=== PATIENT | female | born 1980 | race Caucasian/White ===

== ENCOUNTER 2019-12-30 12:37 | Outpatient (REF) | payer OTHER, SELFPAY ==
[2019-12-30 13:27] LABS: MANUAL DIFF FLAG NO
[2019-12-30 13:29] LABS: Basophils Absolute Auto 0.1 X10*3/uL (0.0-0.2); Basophils Percent Auto 0.7 % (0-2); Eosinophils Absolute Auto 0.1 X10*3/uL (0.0-0.4); Eosinophils Percent Auto 1.6 % (0-4); Hematocrit 43.2 % (37-47); Hemoglobin 13.5 g/dl (12.0-16.0); Imm Gran Abs Auto 0.02 X10*3/uL (0.00-0.03); Imm Gran Pct Auto 0.3 % (0.0-0.4); Lymphocytes Absolute Auto 2.3 X10*3/uL (1.2-4.9); Lymphocytes Percent Auto 30.1 % (20-40); Mean Corpuscular HGB Conc 31.3 g/dl (31.0-35.0); Mean Corpuscular Volume 83.1 fL (80-98); Monocytes Absolute Auto 0.3 X10*3/uL (0.1-1.2); Monocytes Percent Auto 4.4 % (2-11); Neutrophils Absolute Auto 4.7 X10*3/uL (2.0-8.3); Neutrophils Percent Auto 62.9 % (45-73); Platelet Count 304 X10*3/uL (160-400); Red Cell Distribution Width 14.2 % (11.0-16.0); White Blood Count 7.5 X10*3/uL (4.8-10.8)
[2019-12-30 13:58] LABS: Alanine Aminotransferase 15 U/L (0-31); Albumin Level 4.1 g/dL (3.5-5.0); Alkaline Phosphatase 88 U/L (39-117); Anion Gap 12 (12-20); Aspartate Amino Transferase 17 U/L (5-31); Bilirubin Total 0.3 mg/dL (0.0-1.0); Blood Urea Nitrogen 12 mg/dL (9-16); Calcium 8.5 mg/dL (8.4-10.2); Carbon Dioxide 27 mmol/L (22-29); Chloride 105 mmol/L (96-108); Cholesterol 157 mg/dL; Estimated Glomerular Filt Rate > 60; Glucose Fasting 84 mg/dL (60-99); HDL Cholesterol 55 mg/dL; LDL Cholesterol Calculated 85 mg/dl; Potassium 4.5 mmol/l (3.3-5.1); Sodium 139 mmol/L (135-145); Total Protein 6.8 g/dL (6.5-8.0); Triglycerides 85 mg/dL
[2019-12-30 14:12] LABS: Glucose Urine UA NEG (NEG); Leukocyte Esterase Urine NEG (NEG); Nitrite Urine NEG (NEG); PH 6.5 (5.0-8.0); Specific Gravity - Urine 1.015 (1.005-1.025); Urine Blood NEG (NEG); Urine Ketones NEG (NEG); Urine Protein NEG (NEG-TRACE)
[2019-12-30 14:16] LABS: Appearance Urine HAZY; Color Urine YELLOW; UACC Culture Trigger NO
== END 2019-12-30 12:38 | disposition home or self-care (01) ==
LOC: HO.LAB 12:37
PROVIDERS: Visit Provider Internal Medicine
DX: G43.909 Migraine, unspecified, not intractable, without status migrainosus (principal); Z00.00 Encounter for general adult medical examination without abnormal findings; E66.3 Overweight; M54.5 Low back pain
CPT/HCPCS: 36415; 80053; 80061; 81003; 84443; 85025

== ENCOUNTER 2020-09-02 16:17 | Outpatient (REF) | payer OTHER, SELFPAY ==
[2020-09-02 16:50] LABS: Hematocrit 41.9 % (37-47); Hemoglobin 13.4 g/dl (12.0-16.0); Mean Corpuscular Hemoglobin 26.2 pg (27.0-33.0); Mean Corpuscular Volume 81.8 fL (80-98); Mean Platelet Volume 10.6 fL (9.4-12.3); Platelet Count 273 X10*3/uL (160-400); Red Blood Count 5.12 X10*6/uL (4.20-5.50); Red Cell Distribution Width 14.5 % (11.0-16.0); White Blood Count 7.6 X10*3/uL (4.8-10.8)
[2020-09-02 17:18] LABS: Anion Gap 14 (12-20); Blood Urea Nitrogen 10 mg/dL (9-16); Calcium 9.3 mg/dL (8.4-10.2); Carbon Dioxide 24 mmol/L (22-29); Chloride 106 mmol/L (96-108); Estimated Glomerular Filt Rate > 60; Glucose Random 86 mg/dL (60-115); Lipase 15 U/L (8-78); Potassium 4.2 mmol/L (3.3-5.1); Sodium 140 mmol/L (135-145)
[2020-09-03 11:54] LABS: HBc Num1 0.07 S/CO (0.00-0.79); HBsAGNum1 0.16 S/CO (0.00-0.99); Hepatitis B Core Antibody Nonreactive (Nonreactive); Hepatitis B Surface Antigen Negative (Negative); ~HepC Num1 0.05 S/CO (0.00-0.79); ~Hepatitis C Antibody Nonreactive (Nonreactive)
[2020-09-04 08:19] LABS: Hepatitis A Antibody IgM 0.21 Index (0-0.79); ~Hepatitis A Antibody IgM Nonreactive (Nonreactive)
[2020-09-04 11:11] LABS: HBS Num1 1.04 mIU/mL (0-7.99); ~Hepatitis B Surface Antibody NONREACTIVE (Nonreactive)
== END 2020-09-02 16:18 | disposition home or self-care (01) ==
LOC: HO.LAB 16:17
PROVIDERS: PCP Physician Assistant; Visit Provider Physician Assistant
DX: Z01.84 Encounter for antibody response examination (principal); Z11.59 Encounter for screening for other viral diseases; I10 Essential (primary) hypertension; K52.9 Noninfective gastroenteritis and colitis, unspecified
CPT/HCPCS: 36415; 80048; 83690; 85027; 86704; 86706; 86709; 86803; 87340

== ENCOUNTER 2020-10-28 08:08 | Outpatient (REF) | payer OTHER, SELFPAY ==
--- NOTE | ~2020-10-28 | MM_ITS ---
EXAMINATION: MM SCREENING DIGITAL BREAST TOMOSYNTHESIS, BILATERAL CLINICAL INFORMATION: Screening. Asymptomatic. The lifetime risk of breast cancer based on the Tyrer-Cuzick Model is 14%. COMPARISON: Mammography: 10/25/2019, 05/11/2018, 04/28/2017 TECHNIQUE: Digital breast tomosynthesis is performed in both the craniocaudal and mediolateral oblique views along with computer-aided detection (CAD). Synthesized 2D images are generated from the tomosynthesis. FINDINGS: The breasts are heterogeneously dense, which may obscure small masses (ACR BI-RADS breast composition Category c). There are no significant masses, abnormal calcifications, or other abnormalities. Parenchymal pattern is similar to prior studies. No developing density. The skin contours are unremarkable. MM/MM tomosynthesis screening BI IMPRESSION: No mammographic evidence of malignancy. ASSESSMENT: BI-RADS 1: Negative RECOMMENDATION: Routine annual mammography screening. This patient's information was entered into a reminder system with a target due date for their next mammogram.
== END 2020-10-28 08:09 | disposition home or self-care (01) ==
LOC: HO.MAMMO 08:08
PROVIDERS: PCP Internal Medicine; Visit Provider Internal Medicine
DX: Z12.31 Encounter for screening mammogram for malignant neoplasm of breast (principal)
CPT/HCPCS: 77063; 77067

== ENCOUNTER 2022-07-06 14:09 | Outpatient (REF) | payer OTHER, SELFPAY ==
--- NOTE | ~2022-07-06 | MM_ITS ---
EXAMINATION: MM SCREENING DIGITAL BREAST TOMOSYNTHESIS, BILATERAL CLINICAL INFORMATION: Screening. Asymptomatic. The lifetime risk of breast cancer based on the Tyrer-Cuzick Model is 14%. COMPARISON: Mammography: 10/28/2020, 10/25/2019, 05/11/2018 TECHNIQUE: Digital breast tomosynthesis is performed in both the craniocaudal and mediolateral oblique views along with computer-aided detection (CAD). Synthesized 2D images are generated from the tomosynthesis. FINDINGS: The breasts are heterogeneously dense, which may obscure small masses (ACR BI-RADS breast composition Category c). Parenchymal pattern is similar to prior studies and there is no developing density or architectural abnormality. There are no significant masses, abnormal calcifications, or other abnormalities. The axilla are unremarkable. Skin contours are smooth. No significant changes. MM/MM tomosynthesis screening BI IMPRESSION: No mammographic evidence of malignancy. ASSESSMENT: BI-RADS 1: Negative RECOMMENDATION: Routine annual mammography screening. This patient's information was entered into a reminder system with a target due date for their next mammogram.
== END 2022-07-06 14:10 | disposition home or self-care (01) ==
LOC: HO.MAMMO 14:09
PROVIDERS: PCP Internal Medicine; Visit Provider Internal Medicine
DX: Z12.31 Encounter for screening mammogram for malignant neoplasm of breast (principal)
CPT/HCPCS: 77063; 77067

== ENCOUNTER 2022-10-05 13:28 | Outpatient (AMB) | payer OTHER, SELFPAY ==
--- NOTE | 2022-10-05 13:31 | A.OFFPC_ITS ---
Vital Signs 10/05/22 13:32 Height 5 ft 4 in Weight 181 lb BMI 31.1 BP 116/62 Blood Pressure Location Lt brachial Position Sitting Pulse 77 Pulse Source Pulse Oximeter Pulse Oximetry (%) 98 Oxygen Delivery Method Room Air Intake Visit Reasons: Annual PE Gear Technician Required: No Accompanied by: Self / Same As Patient Allergies No Known Allergies Allergy (Verified 10/05/22 13:43) Medication List - Last Reconciled 10/05/22 by Gerard Abernathy MD No Known Home Meds Tobacco use date assessed: 10/05/22 Dental Screening Dental Screen Date: 10/05/22 Did you have a dental visit in the last 12 months?: No Did you have a dental problem in the last 6 months where you did not have access to dental care?: No Was dental information given to patient?: No HPI Annual PE HPI Details Patient comes in today for her annual physical examination - was last seen by me via telehealth visit in 12/2019 She last had a baby (3rd child) in February 2022 - had to undergo due to bradycardia on the baby's part but states that her child is healthy and has had no problems so far States that she currently feels okay She denies any headaches or dizziness - states that her migraine headaches have been well-controlled so far Denies any chest pains, no SOB No nausea/vomiting, no abdominal pain No change in bowel habits noted Denies any acute urinary symptoms Relates (+) on and off low back pain - reports that she was told years ago that she has some scoliosis and would like to have this checked out further Also relates that both of her hips have been hurting frequently lately, and that both of her legs feel numb at times Does not recall any recent injury or trauma to her back or hips Had her annual mammogram last done in June 2022 - mammogram was normal Has not had quarantine inspector exam and pap smear done since her earlier this year and states that she will reach out to [facility] OB-Chief Librarian Circulation Department about this [facility] Medical History (Updated 10/05/22 @ 14:10 by Gerard Abernathy MD) Depression History of dissection of internal carotid artery (~2007) Migraine Obesity (BMI 30-39.9) Surgical History History of section (~02/2022) Family History Father No problems noted. Mother Mental health disorder Social History Housing: House Alcohol intake: never Patient Tobacco Use Status: Never used Tobacco e-Cigarette/Vaping Use: Never Used service: No Current occupational status: employed Cognitive needs: No Hearing needs: No Vision needs: No Questionnaire PHQ-9 Over the last 2 weeks, how often have you been bothered by any of the following problems? 1. Little interest or pleasure in doing things: not at all 2. Feeling down, depressed, or hopeless: not at all 3. Trouble falling or staying asleep, or sleeping too much: not at all 4. Feeling tired or having little energy: not at all 5. Poor appetite or overeating: not at all 6. Feeling bad about yourself - or that you are a failure or have let yourself or your family down: not at all 7. Trouble concentrating on things, such as reading the newspaper or watching television: not at all 8. Moving or speaking so slowly that other people could have noticed. Or the opposite - being so fidgety or restless that you have been moving around a lot more than usual: not at all 9. Thoughts that you would be better off or of hurting yourself in some way: not at all Total score: 0 Depression Screening Interpretation: Negative 19029 - PHQ-9 Billing: Yes Source: Developed by Drs. Mihir Menendez, Nicolasa East, Rickie Sullivan and colleagues, with an educational sunita from [employer]. Thrive Questionnaire Date Thrive assessed: 10/05/22 I am a: Patient What is your living situation today?: I have a steady place to live Within the past 12 months, did the food you bought not last and you didn't have the money to get more?: Never true Within the past 12 months, did you worry whether your food would run out before you got money to buy more?: Never true Do you have trouble paying for medicines?: No Do you have trouble getting transportation to medical appointments?: No Do you have trouble paying your heating and electricity bill?: No Do you have trouble taking care of your child, family member or friend?: No Do you have trouble with day-to-day activities such as bathing, preparing meals, shopping, managing finances, etc.?: No Are you currently unemployed and looking for a job?: No Are you interested in more education?: No Please select the resources that you would like help with: None Currently or been in a relationship where the following occur: no concerns reported AUDIT C Alcohol Use Questionnaire (AUDIT-C) 1. How often do you have a drink containing alcohol?: Never 2. How many drinks containing alcohol do you have on a typical day when you are drinking?: 1 or 2 (none) 3. How often do you have six or more drinks on one occasion?: Never Total Score: 0 Score Reviewed/Action Taken: Yes CRISELDA-7 AMB Questionnaire CRISELDA-7 Date CRISELDA - 7 assessed: 10/05/22 Feeling nervous, anxious, or on edge: 0 = Not at all Not being able to stop or control worryin = Not at all Worrying too much about different things: 0 = Not at all Trouble relaxin = Not at all Being so restless that it is hard to sit still: 0 = Not at all Becoming easily annoyed or irritable: 0 = Not at all Feeling afraid as if something awful might happen: 0 = Not at all Total CRISELDA-7 score (0-4 normal; 5-9 mild; 10-14 moderate; 15-21 severe): 0 Source: Developed by Drs. Mihir Menendez, Nicolasa East, Rickie Sullivan and colleagues, with an educational sunita from [employer]. Review of Systems Const Denies chills, Denies fatigue, Denies fever(s), Denies headache(s) and Denies malaise Eyes Denies blurry vision, Denies irritation and Denies itchy eyes ENT Denies dysphagia, Denies dizziness, Denies otalgia, Denies headache(s), Denies neck pain, Denies odynophagia and Denies sore throat Card Denies chest pain, Denies rapid heart rate, Denies irregular heart rhythm, Denies palpitations and Denies dyspnea Resp Denies chest congestion, Denies cough, Denies dyspnea and Denies wheezing GI Denies abdominal pain, Denies constipation, Denies dysphagia, Denies heartburn, Denies diarrhea, Denies nausea, Denies odynophagia and Denies vomiting Denies hematuria, Denies urinary frequency, Denies dysuria, Denies urinary incontinence and Denies urinary urgency Musc Reports back pain (on and off), Reports arthralgias (lately, in both hips), Denies joint swelling, Denies muscle weakness and Denies neck pain Skin/Breast Denies breast pain, Denies breast mass, Denies change in pigmentation, Denies lesions, Denies photosensitivity, Denies rash and Denies unusual bruising Neuro Denies dizziness, Denies headache(s) and Denies paresthesias Psych Denies anxiety and Denies depression Endo Denies fatigue and Denies palpitations Jorge/Lymph Denies easy bruising Aller/Immun Denies itchy eyes and Denies wheezing Physical exam (Primary Care) Vital Signs: Last Vital Signs Pulse 77 10/05/22 13:32 BP 116/62 10/05/22 13:32 Pulse Ox 98 10/05/22 13:32 Oxygen Delivery Method Room Air 10/05/22 13:32 BMI result Body Mass Index 31.1 Tobacco/Smoking Status: Tobacco use Status Tobacco use date assessed 10/05/22 10/05/22 13:40 Patient Tobacco Use Status Never used Tobacco 10/05/22 13:40 e-Cigarette/Vaping Use Never Used 10/05/22 13:40 PHQ-9: PHQ-9 Score PHQ-9: Total score 0 10/05/22 13:40 Depression Screening Interpretation: Negative Thrive Assessment: Date of Thrive Assessment Date Thrive assessed 10/05/22 10/05/22 13:40 Currently or been in a relationship where the following occur: no concerns reported Const General: no acute distress, alert and awake Orientation/consciousness: patient oriented x3 HENMT Head: Yes normocephalic and Yes atraumatic Ears: external ears normal, TM's normal bilaterally and EAC's normal General nose exam: No nasal discharge present Face and sinus: Yes normal facial exam and Yes sinuses nontender Teeth and gingiva: dentition normal Throat: Yes posterior oropharynx normal and Yes tonsils normal (no TP congestion) Eyes Eyelids: Yes eyelids normal Conjunctivae: conjunctivae normal Pupils: Equal, round and reactive pupils present EOM: EOMs intact bilaterally Neck Neck: Yes no lymphadenopathy and Yes supple Thyroid: Thyroid normal Resp Auscultation: clear to auscultation bilaterally, no rales and no wheezes Cardio Rate: regular rate Rhythm: regular rhythm Heart sounds: no murmurs GI Palpation (GI): Soft to palpation and nontender Auscultation: normal bowel sounds General: Yes no CVA tenderness Back/Spine/Pelvis Back: no CVA tenderness Thoracic/Lumbar Spine: thoracic spinal tenderness (mild, over the lower thoracic spine) and lumbar spinal tenderness (mild) Skin Lesions: no lesions Rashes: no rashes Neuro General: patient oriented x3, moves all extremities, no focal motor deficits and CN's II-XI intact bilaterally Cranial nerves: Yes Equal, round and reactive pupils present Cognition (Neuro): normal cognition Gait exam (Neuro): Normal gait present Extrem General: Yes no clubbing, cyanosis or edema Assessment and Plan Assessment & Plan (1) Annual physical exam: Code(s): Z00.00 - Encounter for general adult medical examination without abnormal findings Plan: Check labs Had a normal screening mammogram done in June 2022 States that she will be reaching out to her OB-Chief Librarian Circulation Department at [facility] to schedule her next annual pap smear and quarantine inspector exam [place] (2) Migraine: Code(s): G43.909 - Migraine, unspecified, not intractable, without status migrainosus Qualifiers: Migraine type: unspecified Status migrainosus presence: without status migrainosus Intractability: not intractable Qualified Code(s): G43.909 - Migraine, unspecified, not intractable, without status migrainosus Plan: Stable - patient states that she hardly has to take anything for headaches lately Reinforced avoidance of potential migraine triggers and advised to make sure she is getting enough rest and sleep at night regularly (3) Back pain: Code(s): M54.9 - Dorsalgia, unspecified Qualifiers: Back pain location: back pain in unspecified location Chronicity: unspecified Back pain laterality: midline Qualified Code(s): M54.89 - Other dorsalgia Plan: Relates (+) Hx of scoliosis although she had lumbar spine x-rays done back in 2013 that came out normal Will send her for x-rays of the thoracic and lumbar spine for further evaluation (4) Bilateral hip pain: Code(s): M25.551 - Pain in right hip; M25.552 - Pain in left hip Plan: Will also send her for x-rays of both hips for further evaluation (5) Obesity (BMI 30-39.9): Code(s): E66.9 - Obesity, unspecified Plan: Reinforced diet/exercise as tolerated/lose weight Plan To return in 1 year for her next annual physical examination Orders: Orders XR thoracic spine 3V Today M54.9 - Dorsalgia, unspecified, Z87.39 - Personal history of other diseases of the musculoskeletal system and connective tissue XR lumbar spine 2-3V Today M54.9 - Dorsalgia, unspecified, Z87.39 - Personal history of other diseases of the musculoskeletal system and connective tissue XR hip LT min 2V Today M25.551 - Pain in right hip, M25.552 - Pain in left hip XR hip RT min 2V Today M25.551 - Pain in right hip, M25.552 - Pain in left hip Comprehensive [place]. Panel Fast Today E78.00 - Pure hypercholesterolemia, unspecified, Z00.00 - Encounter for general adult medical examination without abnormal findings Lipid Panel Today E78.00 - Pure hypercholesterolemia, unspecified, Z00.00 - Encounter for general adult medical examination without abnormal findings TSH reflex Free T4 Today E78.00 - Pure hypercholesterolemia, unspecified, Z00.00 - Encounter for general adult medical examination without abnormal findings Vitamin D 25-OH Total Today E55.9 - Vitamin D deficiency, unspecified, Z00.00 - Encounter for general adult medical examination without abnormal findings Complete Blood Count Auto Diff Today G43.909 - Migraine, unspecified, not intractable, without status migrainosus, Z00.00 - Encounter for general adult medical examination without abnormal findings UA CC w/rflx Micro + Cult Today R30.0 - Dysuria, Z00.00 - Encounter for general adult medical examination without abnormal findings Coding Level of Care Code Est Pt Prev Care 40-64y(83198) Diagnoses Annual physical exam Z00.00 Migraine G43.909 Migraine type: unspecified Status migrainosus presence: without status migrainosus Intractability: not intractable Back pain M54.89 Back pain location: back pain in unspecified location Chronicity: unspecified Back pain laterality: midline Bilateral hip pain M25.551; M25.552 Obesity (BMI 30-39.9) E66.9
[2022-10-05 13:32] VITALS: BP 116/62; PULSE 77; O2SAT 98; BMI 31.1
== END 2022-10-05 13:59 | disposition home or self-care (01) ==
PROVIDERS: PCP Internal Medicine; Visit Provider Internal Medicine
DX: Z00.00 Encounter for general adult medical examination without abnormal findings (principal); G43.909 Migraine, unspecified, not intractable, without status migrainosus; E66.9 Obesity, unspecified; Z68.31 Body mass index [BMI] 31.0-31.9, adult; M54.89 Other dorsalgia; M25.551 Pain in right hip; M25.552 Pain in left hip
CPT/HCPCS: 99396

== ENCOUNTER 2022-10-08 09:23 | Outpatient (REF) | payer OTHER, SELFPAY ==
--- NOTE | ~2022-10-08 | XR_ITS ---
EXAMINATION: XR THORACIC SPINE XR LUMBAR SPINE XR HIP, RIGHT XR HIP, LEFT CLINICAL INFORMATION: Back pain, upper and lower. Bilateral hip pain. COMPARISON: None available. TECHNIQUE: 3 views of the thoracic spine, 3 views of the lumbar spine. AP and lateral views of bilateral hips. FINDINGS: THORACIC SPINE: Mild rightward curvature of the thoracic spine. Mild multilevel degenerative changes with hypertrophic change in the thoracic spine. Thoracic vertebral body heights are preserved. LUMBAR SPINE: Mild leftward curvature of the lumbar spine. Mild multilevel lumbar spondylosis. Lumbar disc space heights are preserved. Facet arthritis in the lower lumbar spine. LEFT HIP: Left hip joint space is preserved. Small lateral acetabular hypertrophic change. RIGHT HIP: Ksla-zd-gmlzvxzy degenerative changes with joint space narrowing right hip. Small right lateral acetabular cystic lucency. XR/XR lumbar spine 2-3V IMPRESSION: 1. Mild degenerative changes in the thoracic spine. 2. Facet arthritis in the lower lumbar spine. 3. Nkli-kj-zskmpatn degenerative changes right hip. 4. Minimal degenerative changes left hip. Additional imaging with CT scan or MRI should be considered for better visualization as these modalities are much more sensitive for detection of fracture or other underlying pathology.
--- NOTE | ~2022-10-08 | XR_ITS ---
EXAMINATION: XR THORACIC SPINE XR LUMBAR SPINE XR HIP, RIGHT XR HIP, LEFT CLINICAL INFORMATION: Back pain, upper and lower. Bilateral hip pain. COMPARISON: None available. TECHNIQUE: 3 views of the thoracic spine, 3 views of the lumbar spine. AP and lateral views of bilateral hips. FINDINGS: THORACIC SPINE: Mild rightward curvature of the thoracic spine. Mild multilevel degenerative changes with hypertrophic change in the thoracic spine. Thoracic vertebral body heights are preserved. LUMBAR SPINE: Mild leftward curvature of the lumbar spine. Mild multilevel lumbar spondylosis. Lumbar disc space heights are preserved. Facet arthritis in the lower lumbar spine. LEFT HIP: Left hip joint space is preserved. Small lateral acetabular hypertrophic change. RIGHT HIP: Fjue-tp-kqcdtwej degenerative changes with joint space narrowing right hip. Small right lateral acetabular cystic lucency. XR/XR hip RT min 2V IMPRESSION: 1. Mild degenerative changes in the thoracic spine. 2. Facet arthritis in the lower lumbar spine. 3. Rwjy-bp-zszzwiir degenerative changes right hip. 4. Minimal degenerative changes left hip. Additional imaging with CT scan or MRI should be considered for better visualization as these modalities are much more sensitive for detection of fracture or other underlying pathology.
--- NOTE | ~2022-10-08 | XR_ITS ---
EXAMINATION: XR THORACIC SPINE XR LUMBAR SPINE XR HIP, RIGHT XR HIP, LEFT CLINICAL INFORMATION: Back pain, upper and lower. Bilateral hip pain. COMPARISON: None available. TECHNIQUE: 3 views of the thoracic spine, 3 views of the lumbar spine. AP and lateral views of bilateral hips. FINDINGS: THORACIC SPINE: Mild rightward curvature of the thoracic spine. Mild multilevel degenerative changes with hypertrophic change in the thoracic spine. Thoracic vertebral body heights are preserved. LUMBAR SPINE: Mild leftward curvature of the lumbar spine. Mild multilevel lumbar spondylosis. Lumbar disc space heights are preserved. Facet arthritis in the lower lumbar spine. LEFT HIP: Left hip joint space is preserved. Small lateral acetabular hypertrophic change. RIGHT HIP: Dvfj-rq-ylhezjtb degenerative changes with joint space narrowing right hip. Small right lateral acetabular cystic lucency. XR/XR thoracic spine 3V IMPRESSION: 1. Mild degenerative changes in the thoracic spine. 2. Facet arthritis in the lower lumbar spine. 3. Xyso-fe-fzxzyjoe degenerative changes right hip. 4. Minimal degenerative changes left hip. Additional imaging with CT scan or MRI should be considered for better visualization as these modalities are much more sensitive for detection of fracture or other underlying pathology.
--- NOTE | ~2022-10-08 | XR_ITS ---
EXAMINATION: XR THORACIC SPINE XR LUMBAR SPINE XR HIP, RIGHT XR HIP, LEFT CLINICAL INFORMATION: Back pain, upper and lower. Bilateral hip pain. COMPARISON: None available. TECHNIQUE: 3 views of the thoracic spine, 3 views of the lumbar spine. AP and lateral views of bilateral hips. FINDINGS: THORACIC SPINE: Mild rightward curvature of the thoracic spine. Mild multilevel degenerative changes with hypertrophic change in the thoracic spine. Thoracic vertebral body heights are preserved. LUMBAR SPINE: Mild leftward curvature of the lumbar spine. Mild multilevel lumbar spondylosis. Lumbar disc space heights are preserved. Facet arthritis in the lower lumbar spine. LEFT HIP: Left hip joint space is preserved. Small lateral acetabular hypertrophic change. RIGHT HIP: Zpnx-tf-womzxkjq degenerative changes with joint space narrowing right hip. Small right lateral acetabular cystic lucency. XR/XR hip LT min 2V IMPRESSION: 1. Mild degenerative changes in the thoracic spine. 2. Facet arthritis in the lower lumbar spine. 3. Fdho-jo-xhhqnply degenerative changes right hip. 4. Minimal degenerative changes left hip. Additional imaging with CT scan or MRI should be considered for better visualization as these modalities are much more sensitive for detection of fracture or other underlying pathology.
[2022-10-08 09:33] LABS: MANUAL DIFF FLAG NO
[2022-10-08 09:57] LABS: Appearance Urine Clear; Color Urine Yellow; Glucose Urine UA Negative (Negative); Leukocyte Esterase Urine Negative (Negative); Nitrite Urine Negative (Negative); PH 5.5 (5.0-9.0); Specific Gravity - Urine 1.025 (1.005-1.025); Urine Blood Negative (Negative); Urine Ketones Negative (Negative); Urine Protein Negative (Neg-Trace)
[2022-10-08 09:58] LABS: Basophils Percent Auto 0.4 % (0-2); Eosinophils Absolute Auto 0.1 X10*3/uL (0.0-0.4); Eosinophils Percent Auto 1.4 % (0-4); Hematocrit 41.9 % (37.0-47.0); Hemoglobin 13.2 g/dl (12.0-16.0); Imm Gran Abs Auto 0.02 X10*3/uL (0.00-0.03); Imm Gran Pct Auto 0.3 % (0.0-0.4); Lymphocytes Absolute Auto 2.4 X10*3/uL (1.2-4.9); Lymphocytes Percent Auto 32.9 % (20-40); Mean Corpuscular HGB Conc 31.5 g/dl (31.0-35.0); Mean Corpuscular Hemoglobin 25.8 pg (27.0-33.0); Mean Corpuscular Volume 81.8 fL (80.0-98.0); Mean Platelet Volume 10.7 fL (9.4-12.3); Monocytes Absolute Auto 0.4 X10*3/uL (0.1-1.2); Neutrophils Absolute Auto 4.3 x10*3/uL (2.0-8.3); Platelet Count 306 X10*3/uL (160-400); Red Blood Count 5.12 X10*6/uL (4.20-5.50); White Blood Count 7.2 X10*3/uL (4.8-10.8)
[2022-10-08 10:45] LABS: Alanine Aminotransferase 18 U/L (0-31); Albumin Level 4.2 g/dL (3.5-5.0); Alkaline Phosphatase 89 U/L (39-117); Anion Gap 11 (12-20); Aspartate Amino Transferase 15 U/L (5-31); Bilirubin Total 0.4 mg/dL (0.0-1.0); Blood Urea Nitrogen 16 mg/dL (9-16); Carbon Dioxide 24 mmol/L (22-29); Chloride 109 mmol/L (96-108); Cholesterol 165 mg/dL; Estimated Glomerular Filt Rate > 60; Glucose Fasting 91 mg/dL (60-99); HDL Cholesterol 60 mg/dL; LDL Cholesterol Calculated 88 mg/dl; Potassium 4.2 mmol/L (3.3-5.1); Sodium 140 mmol/L (135-145); Total Protein 7.1 g/dL (6.5-8.0); Triglycerides 87 mg/dL
[2022-10-08 11:01] LABS: TSH reflex Free T4 1.07 uIU/mL (0.32-4.0); Vitamin D 25-OH Total 31.4 ng/mL (>30)
== END 2022-10-08 09:24 | disposition home or self-care (01) ==
LOC: HO.LAB 09:23
PROVIDERS: PCP Internal Medicine; Visit Provider Internal Medicine
DX: M54.9 Dorsalgia, unspecified (principal); M25.551 Pain in right hip; M25.552 Pain in left hip; R30.0 Dysuria; E55.9 Vitamin D deficiency, unspecified; G43.909 Migraine, unspecified, not intractable, without status migrainosus; E78.00 Pure hypercholesterolemia, unspecified; Z00.00 Encounter for general adult medical examination without abnormal findings; Z87.39 Personal history of other diseases of the musculoskeletal system and connective tissue
CPT/HCPCS: 36415; 72072; 72100; 73502; 80053; 80061; 81003; 82306; 84443; 85025

== ENCOUNTER 2023-07-11 09:50 | Outpatient (AMB) | payer OTHER, SELFPAY ==
--- NOTE | 2023-07-11 09:53 | A.OFFVIS_ITS ---
Vital Signs 07/11/23 09:54 Height 5 ft 4 in Weight 181 lb BMI 31.1 Intake Visit Reasons: PURCHASING INTERNSHIP-Bilateral primary osteoarthritis of hip Intake Note: Sonali is a 43 year old female who presents today as a new patient for a evaluation of her bilateral hip pain. Patient reports ongoing pain for a year and she feels that it is getting worse. She expresses that her right hip is worse than the left hip. Pain is more focused on the lateral aspect of the hip and towards the glutes, sometimes in her lower back as well. Patient tends to have numbness in both of her legs. She didn't find relief when she saw a chiropractor and when she was alternating with ice and heat. Allergies No Known Allergies Allergy (Verified 07/11/23 09:54) HPI HPI PURCHASING INTERNSHIP-Bilateral primary osteoarthritis of hip: Details: 43-year-old female who presents in the office today, as a new patient, for an evaluation of bilateral hip pain. Patient was referred to the office due to having bilateral hip pain for 2-3 months. She also reported bilateral lower extremity numbness. She reported being seen by the Chiropractor but was unable to continue to attend due to cost. While in the office today the patient reports ongoing pain for a year. She states this pain is increasing with her right hip being worse than her left hip. Reports the pain is focused on the lateral aspect of the bilateral hips and towards the glutes. States the pain is occasionally in her lower back. Confirms numbness in her bilateral lower extremities. She states she did not find relief when being treated by a Chiropractor or when alternating between ice and heat. Patient describes her pain along the lateral aspect of the hips, buttocks, and the lower back. She reports intermittent numbness and tingling throughout the entire bilateral lower extremities that is intermitted. Reports occasional calf pain. [facility] Medical History (Updated 07/11/23 @ 10:19 by Carol Gary) Obesity (BMI 30-39.9) History of dissection of internal carotid artery (~2007) Depression Migraine Surgical History History of section (~02/2022) Family History Father No problems noted. Mother Mental health disorder Social History Housing: House Alcohol intake: never Patient Tobacco Use Status: Never used Tobacco e-Cigarette/Vaping Use: Never Used service: No Current occupational status: employed Cognitive needs: No Hearing needs: No Vision needs: No Review of Systems Const All systems reviewed & are unremarkable except as noted in HPI and below Physical Exam Vital Signs: BMI result Body Mass Index 31.1 Const General: cooperative and no acute distress Orientation/consciousness: patient oriented x3 Resp Effort & Inspection: normal respiratory effort and able to speak in complete sentences Cardio Peripheral pulses: Peripheral pulses 2+ throughout Skin General skin exam: no rashes or lesions noted Neuro General: patient oriented x3 Extrem Other: Bilateral hips: Normal to inspection. No ecchymosis, erythema, or edema. Full hip ROM in all planes. No tenderness to palpation over the greater trochanteric bursa. 5/5 strength with resisted hip flexion, knee extension, abduction, and abduction. Able to perform straight leg raise. NVI. Assessment & Plan Assessment & Plan (1) Osteoarthritis of right hip: Code(s): M16.11 - Unilateral primary osteoarthritis, right hip Category: Medical Qualifiers: Osteoarthritis type: unspecified Qualified Code(s): M16.11 - Unilateral primary osteoarthritis, right hip (2) Spondylosis of lumbar spine: Code(s): M47.816 - Spondylosis without myelopathy or radiculopathy, lumbar region Category: Medical Plan Ms. Devaughn Caba is a 43-year-old female who presents in the office today, as a new patient, for an evaluation of bilateral hip pain. Patient was referred to the office due to having bilateral hip pain for 2-3 months. She also reported bilateral lower extremity numbness. She reported being seen by the Chiropractor but was unable to continue to attend due to cost. While in the office today the patient reports ongoing pain for a year. She states this pain is increasing with her right hip being worse than her left hip. Reports the pain is focused on the lateral aspect of the bilateral hips and towards the glutes. States the pain is occasionally in her lower back. Confirms numbness in her bilateral lower extremities. She states she did not find relief when being treated by a Chiropractor or when alternating between ice and heat. Patient describes her pain along the lateral aspect of the hips, buttocks, and the lower back. She reports intermittent numbness and tingling throughout the entire bilateral lower extremities that is intermitted. Reports occasional calf pain. A referral for physical therapy to treat her lower back was made in the office today. I will also make a referral for the patient to be further evaluated by Physiatry. Follow up with Orthopedics will be PRN, or sooner if needed. X-rays of the bilateral hips, thoracic spine, and lumbar spine, obtained on 10/08/2022, revealed: FINDINGS: THORACIC SPINE: Mild rightward curvature of the thoracic spine. Mild multilevel degenerative changes with hypertrophic change in the thoracic spine. Thoracic vertebral body heights are preserved. LUMBAR SPINE: Mild leftward curvature of the lumbar spine. Mild multilevel lumbar spondylosis. Lumbar disc space heights are preserved. Facet arthritis in the lower lumbar spine. LEFT HIP: Left hip joint space is preserved. Small lateral acetabular hypertrophic change. RIGHT HIP: Wgye-zl-yqppqokt degenerative changes with joint space narrowing right hip. Small right lateral acetabular cystic lucency. XR/XR lumbar spine 2-3V IMPRESSION: 1. Mild degenerative changes in the thoracic spine 2. Facet arthritis in the lower lumbar spine. 3. Fyfd-or-yritdwei degenerative changes right hip. 4. Minimal degenerative changes left hip. Additional imaging with CT scan or MRI should be considered for better visualization as these modalities are much more sensitive for detection of fracture or other underlying pathology. Orders: Orders PT Evaluation and Treatment Today M16.11 - Unilateral primary osteoarthritis, right hip, M47.816 - Spondylosis without myelopathy or radiculopathy, lumbar region Patient Instructions: Scribed by Carol Gary medical detail representative, for Vanessa Maria PA-C on 07/11/2023 at 10:02 am, EST. Coding Level of Care Code New Pt Level 4 (63579) Diagnoses Osteoarthritis of right hip, unspecified osteoarthritis type M16.11 Osteoarthritis type: unspecified Spondylosis of lumbar spine M47.816
[2023-07-11 09:54] VITALS: BMI 31.1
== END 2023-07-11 10:15 | disposition home or self-care (01) ==
PROVIDERS: PCP Internal Medicine; Visit Provider Physician Assistant
DX: M16.11 Unilateral primary osteoarthritis, right hip (principal); M47.816 Spondylosis without myelopathy or radiculopathy, lumbar region
CPT/HCPCS: 99204

== ENCOUNTER → 2023-07-11 09:50 | Outpatient (BNVA) | payer OTHER, SELFPAY | PROVIDERS: PCP Internal Medicine; Visit Provider Physician Assistant ==

== ENCOUNTER 2023-09-13 16:56 | Outpatient (REF) | payer OTHER, SELFPAY ==
[2023-09-13 17:31] LABS: Appearance Urine Clear; Color Urine Yellow; Glucose Urine UA Negative (Negative); Leukocyte Esterase Urine Negative (Negative); Nitrite Urine Negative (Negative); PH 6.5 (5.0-9.0); Specific Gravity - Urine 1.015 (1.005-1.025); Urine Blood Negative (Negative); Urine Ketones Negative (Negative); Urine Protein Negative (Neg-Trace)
== END 2023-09-13 16:57 | disposition home or self-care (01) ==
LOC: HO.LAB 16:56
PROVIDERS: PCP Internal Medicine; Visit Provider Internal Medicine
DX: N39.0 Urinary tract infection, site not specified (principal)
CPT/HCPCS: 81003

== ENCOUNTER 2023-10-28 09:08 | Outpatient (AMB) | payer OTHER, SELFPAY ==
[2023-10-28 09:48] VITALS: BP 110/72; PULSE 68; TEMP 37; O2SAT 98; BMI 30.6
--- NOTE | 2023-10-28 09:48 | MHC.OFFWIV ---
Intake Vital Signs 10/28/23 09:48 Height 5 ft 4 in Weight 178 lb BMI 30.6 BP 110/72 Blood Pressure Location Lt brachial Position Sitting Pulse 68 Pulse Source Pulse Oximeter Temp 98.6 F Temp Source Oral Pulse Oximetry (%) 98 Oxygen Delivery Method Room Air Intake Visit Reasons: EP sore throat/ear Intake Note: Patient copmplains of right ear pain and lymph node for 3 days now, no known diacharge from her ear. Patient Tobacco Use Status: Never used Tobacco Allergies No Known Allergies Allergy (Verified 10/28/23 09:49) Do you need a note to return to daycare/school/sports/work: No HPI EP sore throat/ear HPI Details Right ear pain and tender right-sided neck below her ear at the angle of her jaw for the past 3 days and worsening. No sore throat or pain with swallowing. She instead has tenderness at the outside of her neck on the right. No fevers or chills No sick contacts [facility] Medical History (Updated 10/28/23 @ 10:01 by Roman Wu MD) Obesity (BMI 30-39.9) History of dissection of internal carotid artery (~2007) Depression Migraine Surgical History History of section (~02/2022) Family History Father No problems noted. Mother Mental health disorder Social History Housing: House Alcohol intake: never Patient Tobacco Use Status: Never used Tobacco e-Cigarette/Vaping Use: Never Used service: No Current occupational status: employed Cognitive needs: No Hearing needs: No Vision needs: No Review of Systems Const Details: See HPI Physical Exam Vital Signs: Last Vital Signs Temp 98.6 F 10/28/23 09:48 Pulse 68 10/28/23 09:48 BP 110/72 10/28/23 09:48 Pulse Ox 98 10/28/23 09:48 Oxygen Delivery Method Room Air 10/28/23 09:48 BMI result Body Mass Index 30.6 Const General: no acute distress and well developed Nutritional Appearance: well nourished Orientation/consciousness: patient oriented x3 HEENT Other: Right TM is erythematous, swollen and has pus at inferior aspect of the membrane. Left TM is normal Posterior pharynx erythematous, without exudate. Tender Right anterior cervical chain LAD Head: Yes normocephalic and Yes atraumatic Eyes General: appearance normal, both eyes and all related structures Pupils: Equal, round and reactive pupils present EOM: EOMs intact bilaterally Resp Effort & Inspection: normal respiratory effort Auscultation: clear to auscultation bilaterally Cardio Rate: regular rate Rhythm: regular rhythm Heart sounds: S1 normal heart sound present, S2 normal heart sound present, no gallops, no murmurs and no rubs Neuro General: patient oriented x3 and gait normal Cranial nerves: Yes Equal, round and reactive pupils present Psych Affect: normal affect Assessment & Plan Assessment & Plan (1) Right otitis media: Code(s): H66.91 - Otitis media, unspecified, right ear Plan: Start amoxicillin Finish on medication Can also use OTC ibuprofen for aches pains or fevers Hydrate well Warm compresses Call or return to office if worsening or not improving Medications: New amoxicillin 500 mg PO Q12H 10 days 20 tabs 0RF Coding Level of Care Code Est Pt Level 3 (45692) Diagnoses Right otitis media H66.91
== END 2023-10-28 10:04 | disposition home or self-care (01) ==
PROVIDERS: PCP Internal Medicine; Visit Provider Family Medicine
DX: H66.91 Otitis media, unspecified, right ear (principal)
CPT/HCPCS: 99213

== ENCOUNTER 2023-12-13 15:43 | Outpatient (AMB) | payer OTHER, SELFPAY ==
[2023-12-13 15:45] VITALS: BP 100/70; PULSE 64; O2SAT 98; BMI 30.6
--- NOTE | 2023-12-13 15:45 | A.OFFPC_ITS ---
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 Accompanied by: Self / Same As Patient Allergies No Known Allergies Allergy (Verified 12/13/23 16:13) Medication List - Last Reconciled 12/13/23 by Gerard Abernathy MD multivitamin (Multiple Vitamins tablet) 1 tab PO DAILY Tobacco use date assessed: 12/13/23 Dental Screening Dental Screen Date: 12/13/23 Did you have a dental visit in the last 12 months?: No Did you have a dental problem in the last 6 months where you did not have access to dental care?: No Was dental information given to patient?: No HPI ANNUAL HPI Details Patient comes in today for her annual physical examination States that she feels okay Denies any headaches or dizziness Denies any chest pains, no SOB No nausea/vomiting, no abdominal pain No change in bowel habits noted She denies any acute urinary symptoms States that she is up-to-date with her annual gynecology exam and pap smear - she goes to [facility] She is due for her annual mammogram Would also like to get her flu shot today [facility] Medical History Obesity (BMI 30-39.9) History of dissection of internal carotid artery (~2007) Depression Migraine Surgical History History of section (~02/2022) Family History Father No problems noted. Mother Mental health disorder Social History Housing: House Alcohol intake: never Patient Tobacco Use Status: Never used Tobacco e-Cigarette/Vaping Use: Never Used service: No Current occupational status: employed Cognitive needs: No Hearing needs: No Vision needs: No Questionnaire PHQ-9 Over the last 2 weeks, how often have you been bothered by any of the following problems? 1. Little interest or pleasure in doing things: not at all 2. Feeling down, depressed, or hopeless: not at all 3. Trouble falling or staying asleep, or sleeping too much: not at all 4. Feeling tired or having little energy: not at all 5. Poor appetite or overeating: not at all 6. Feeling bad about yourself - or that you are a failure or have let yourself or your family down: not at all 7. Trouble concentrating on things, such as reading the newspaper or watching television: not at all 8. Moving or speaking so slowly that other people could have noticed. Or the opposite - being so fidgety or restless that you have been moving around a lot more than usual: not at all 9. Thoughts that you would be better off or of hurting yourself in some way: not at all Total score: 0 Depression Screening Interpretation: Negative Depression Screening Done: Yes 63778 - PHQ-9 Billing: Yes Source: Developed by Drs. Mihir Menendez, Nicolasa East, Rickie Sullivan and colleagues, with an educational sunita from [employer]. Thrive Questionnaire Date Thrive assessed: 12/13/23 I am a: Patient What is your living situation today?: I have a steady place to live Within the past 12 months, did the food you bought not last and you didn't have the money to get more?: Never true Within the past 12 months, did you worry whether your food would run out before you got money to buy more?: Never true Do you have trouble paying for medicines?: No Do you have trouble getting transportation to medical appointments?: No Do you have trouble paying your heating and electricity bill?: No Do you have trouble taking care of your child, family member or friend?: No Do you have trouble with day-to-day activities such as bathing, preparing meals, shopping, managing finances, etc.?: No Are you currently unemployed and looking for a job?: No Are you interested in more education?: No Please select the resources that you would like help with: None Currently or been in a relationship where the following occur: No concerns reported THRIVE Score: 0 AUDIT C Alcohol Use Questionnaire (AUDIT-C) 1. How often do you have a drink containing alcohol?: Never 3. How often do you have six or more drinks on one occasion?: Never Total Score: 0 Score Reviewed/Action Taken: Yes CRISELDA-7 AMB Questionnaire CRISELDA-7 Date CRISELDA - 7 assessed: 12/13/23 Feeling nervous, anxious, or on edge: 0 = Not at all Not being able to stop or control worryin = Not at all Worrying too much about different things: 0 = Not at all Trouble relaxin = Not at all Being so restless that it is hard to sit still: 0 = Not at all Becoming easily annoyed or irritable: 0 = Not at all Feeling afraid as if something awful might happen: 0 = Not at all Total CRISELDA-7 score (0-4 normal; 5-9 mild; 10-14 moderate; 15-21 severe): 0 Source: Developed by Drs. Mihir Menendez, Nicolaas East, Rickie Sullivan and colleagues, with an educational sunita from [employer]. Review of Systems Const Denies chills, Denies fatigue, Denies fever(s), Denies headache(s) and Denies malaise Eyes Denies blurry vision, Denies change in vision, Denies irritation and Denies itchy eyes ENT Denies dysphagia, Denies dizziness, Denies otalgia, Denies headache(s), Denies nasal congestion, Denies neck pain, Denies odynophagia, Denies sinus pain and Denies sore throat Card Denies chest pain, Denies rapid heart rate, Denies irregular heart rhythm, Denies palpitations and Denies dyspnea Resp Denies chest congestion, Denies cough, Denies dyspnea and Denies wheezing GI Denies abdominal pain, Denies bloating, Denies constipation, Denies dysphagia, Denies heartburn, Denies diarrhea, Denies nausea, Denies odynophagia and Denies vomiting Denies hematuria, Denies urinary frequency, Denies dysuria, Denies urinary incontinence and Denies urinary urgency Musc Denies back pain, Denies arthralgias, Denies joint swelling, Denies muscle weakness and Denies neck pain Skin/Breast Denies breast pain, Denies breast mass, Denies change in pigmentation, Denies lesions, Denies rash and Denies unusual bruising Neuro Denies dizziness, Denies headache(s) and Denies paresthesias Psych Denies anxiety and Denies depression Endo Denies fatigue and Denies palpitations Jorge/Lymph Denies easy bruising Aller/Immun Denies itchy eyes and Denies wheezing Physical exam (Primary Care) Vital Signs: Last Vital Signs Pulse 64 12/13/23 15:45 BP 100/70 12/13/23 15:45 Pulse Ox 98 12/13/23 15:45 Oxygen Delivery Method Room Air 12/13/23 15:45 BMI result Body Mass Index 30.6 Tobacco/Smoking Status: Tobacco use Status Tobacco use date assessed 12/13/23 12/13/23 15:49 Patient Tobacco Use Status Never used Tobacco 12/13/23 15:49 e-Cigarette/Vaping Use Never Used 12/13/23 15:49 PHQ-9: PHQ-9 Score PHQ-9: Total score 0 12/13/23 16:13 Depression Screening Interpretation: Negative Thrive Assessment: Date of Thrive Assessment Date Thrive assessed 12/13/23 12/13/23 15:49 Currently or been in a relationship where the following occur: No concerns reported Const General: no acute distress, alert and awake Orientation/consciousness: patient oriented x3 HENMT Head: Yes normocephalic and Yes atraumatic Ears: external ears normal, TM's normal bilaterally and EAC's normal General nose exam: No nasal discharge present Face and sinus: Yes normal facial exam and Yes sinuses nontender Teeth and gingiva: dentition normal Throat: Yes posterior oropharynx normal and Yes tonsils normal (no TP congestion) Eyes Eyelids: Yes eyelids normal Conjunctivae: conjunctivae normal Pupils: Equal, round and reactive pupils present EOM: EOMs intact bilaterally Neck Neck: Yes no lymphadenopathy and Yes supple Thyroid: Thyroid normal Resp Auscultation: clear to auscultation bilaterally, no rales and no wheezes Cardio Rate: regular rate Rhythm: regular rhythm Heart sounds: no murmurs GI Palpation (GI): Soft to palpation, nontender and No hepatosplenomegaly present Auscultation: normal bowel sounds General: Yes no CVA tenderness Back/Spine/Pelvis Back: no CVA tenderness Thoracic/Lumbar Spine: thoracic and lumbar spine normal to inspection Skin Lesions: no lesions Rashes: no rashes Neuro General: patient oriented x3, moves all extremities, no focal motor deficits and CN's II-XI intact bilaterally Cranial nerves: Yes Equal, round and reactive pupils present Cognition (Neuro): normal cognition Gait exam (Neuro): Normal gait present Extrem General: Yes no clubbing, cyanosis or edema Office Procedures Flu Questionnaire Does the patient have a severe egg allergy?: No Does the patient have severe life threatening allergies?: No Does the patient have a fever or illness today?: No Has the patient ever had Guillain-Mel[place] Syndrome?: No Has the patient ever had any past reaction to a flu shot?: No Immunizations Fluarix Triv [id number] (PF) 45 mcg (15 mcg x 3)/0.5 mL IM syringe Performing Provider: Gerard Abernathy MD [facility] Administered by: RICHI Lucas on 12/13/23 15:54 Dose Route Admin Location Dispensed Lot Number Expiration Date 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.5 mL IM Left Deltoid 0.5 mL [id number] 08/26/24 [id number] [employer] VIS Given Date VIS Provided VIS Publication Date 12/13/23 Single Vaccine 20 Eligibility Eligibility Date Funding Source Not [facility] Eligible 12/13/23 Private Coding Level of Care Code Est Pt Prev Care 40-64y(89766) Diagnoses Annual physical exam Z00.00 Migraine without status migrainosus, not intractable, unspecified migraine type G43.909 Migraine type: unspecified Status migrainosus presence: without status migrainosus Intractability: not intractable Degeneration of thoracolumbar intervertebral disc M51.35 Bilateral primary osteoarthritis of hip M16.0 Obesity (BMI 30-39.9) E66.9 Breast cancer screening by mammogram Z12.31 Assessment & Plan Assessment & Plan (1) Annual physical exam: Code(s): Z00.00 - Encounter for general adult medical examination without abnormal findings Category: Medical Plan: Check labs She is up-to-date with her annual gynecology exam and pap smear She is due for her yearly mammogram and this will be ordered (2) Migraine: Code(s): G43.909 - Migraine, unspecified, not intractable, without status migrainosus Category: Medical Qualifiers: Migraine type: unspecified Status migrainosus presence: without status migrainosus Intractability: not intractable Qualified Code(s): G43.909 - Migraine, unspecified, not intractable, without status migrainosus Plan: Stable - patient states that she hardly has to take anything for headaches lately Reinforced avoidance of potential migraine triggers and advised to make sure she is getting enough rest and sleep at night regularly (3) Degeneration of thoracolumbar intervertebral disc: Code(s): M51.35 - Other intervertebral disc degeneration, thoracolumbar region Category: Medical Plan: X-rays of the thoracic and lumbar spine done last year (September 2022) revealed (+) mild degenerative changes in the thoracic spine and facet arthritis in the lower lumbar spine (4) Bilateral primary osteoarthritis of hip: Code(s): M16.0 - Bilateral primary osteoarthritis of hip Category: Medical Plan: X-rays done last year (September 2022) revealed (+) [id number] degenerative changes in the right hip and minimal degenerative changes in the left hip Follow up with orthopedics as scheduled (5) Obesity (BMI 30-39.9): Code(s): E66.9 - Obesity, unspecified Category: Medical Plan: Reinforced diet/exercise as tolerated/lose weight (6) Breast cancer screening by mammogram: Code(s): Z12.31 - Encounter for screening mammogram for malignant neoplasm of breast Category: Medical Plan: Will send patient for her annual mammography Plan As requested, flu vaccine given to patient today To return in 1 year for her next annual physical examination Orders: Orders Influenza [id number] Immunization 12/13/23 Z23 - Encounter for immunization Comprehensive Boyd. Panel Fast 12/13/23 E78.00 - Pure hypercholesterolemia, unspecified, Z00.00 - Encounter for general adult medical examination without abnormal findings TSH reflex Free T4 12/13/23 E78.00 - Pure hypercholesterolemia, unspecified, Z00.00 - Encounter for general adult medical examination without abnormal findings UA CC w/rflx Micro + Cult 12/13/23 R30.0 - Dysuria, Z00.00 - Encounter for general adult medical examination without abnormal findings Vitamin D 25-OH Total 12/13/23 E55.9 - Vitamin D deficiency, unspecified, Z00.00 - Encounter for general adult medical examination without abnormal findings MM tomosynthesis screening BI 12/13/23 Z12.31 - Encounter for screening mammogram for malignant neoplasm of breast Complete Blood Count Auto Diff 12/13/23 D64.9 - Anemia, unspecified, Z00.00 - Encounter for general adult medical examination without abnormal findings Lipid Panel 12/13/23 E78.00 - Pure hypercholesterolemia, unspecified, Z00.00 - Encounter for general adult medical examination without abnormal findings
== END 2023-12-13 16:23 | disposition home or self-care (01) ==
PROVIDERS: PCP Internal Medicine; Visit Provider Internal Medicine
DX: Z00.00 Encounter for general adult medical examination without abnormal findings (principal); G43.909 Migraine, unspecified, not intractable, without status migrainosus; M51.35 Other intervertebral disc degeneration, thoracolumbar region; M16.0 Bilateral primary osteoarthritis of hip; E66.9 Obesity, unspecified; Z12.31 Encounter for screening mammogram for malignant neoplasm of breast

== ENCOUNTER → 2023-12-13 15:43 | Outpatient (BNVA) | payer OTHER, SELFPAY | PROVIDERS: PCP Internal Medicine; Visit Provider Internal Medicine | DX: Z00.00 Encounter for general adult medical examination without abnormal findings (principal); G43.909 Migraine, unspecified, not intractable, without status migrainosus; M51.35 Other intervertebral disc degeneration, thoracolumbar region; M16.0 Bilateral primary osteoarthritis of hip; E66.9 Obesity, unspecified; Z68.30 Body mass index [BMI] 30.0-30.9, adult; Z23 Encounter for immunization | CPT/HCPCS: 90471; 90656; 96127 ==

== ENCOUNTER 2024-01-24 13:33 | Outpatient (REF) | payer OTHER, SELFPAY ==
--- NOTE | ~2024-01-24 | MM_ITS ---
EXAMINATION: MM SCREENING DIGITAL BREAST TOMOSYNTHESIS, BILATERAL CLINICAL INFORMATION: Screening. Asymptomatic. COMPARISON: Mammography: Comparison is made with available priors TECHNIQUE: Digital breast mammography with tomosynthesis is performed in both the craniocaudal and mediolateral oblique views along with computer-aided detection (CAD). FINDINGS: The breasts are heterogeneously dense, which may obscure small masses (ACR BI-RADS breast composition Category c). There are no significant masses, abnormal calcifications, or other abnormalities. MM/MM tomosynthesis screening BI IMPRESSION: No mammographic evidence of malignancy. ASSESSMENT: BI-RADS BI-RADS 1 - Negative RECOMMENDATION: Routine annual mammography screening. 1 year F/U This examination should not preclude the clinical evaluation of a suspicious palpable abnormality. This patient's information was entered into a reminder system with a target due date for their next mammogram. Electronically signed by: Angelica Lane DO 02/02/2024 10:12 AM [facility]
== END 2024-01-24 13:34 | disposition home or self-care (01) ==
LOC: HO.MAMMO 13:33
PROVIDERS: PCP Internal Medicine; Visit Provider Internal Medicine
DX: Z12.31 Encounter for screening mammogram for malignant neoplasm of breast (principal)
CPT/HCPCS: 77063; 77067

== ENCOUNTER → 2024-01-24 13:34 | Outpatient (BNV) | payer OTHER, SELFPAY | PROVIDERS: PCP Internal Medicine; Visit Provider Internal Medicine | DX: Z12.31 Encounter for screening mammogram for malignant neoplasm of breast (principal) | CPT/HCPCS: 77063; 77067 ==

== ENCOUNTER 2024-06-26 07:57 | Outpatient (AMB) | payer OTHER, SELFPAY ==
[2024-06-26 08:20] VITALS: BP 112/72; PULSE 92; TEMP 37.6; O2SAT 98; BMI 30.7
--- NOTE | 2024-06-26 08:20 | AM.OFFWIN_ITS ---
Intake Vital Signs 06/26/24 08:20 Height 5 ft 4 in Weight 179 lb BMI 30.7 BP 112/72 Blood Pressure Location Rt brachial Position Sitting Pulse 92 Pulse Source Pulse Oximeter Temp 99.6 F Temp Source Oral Pulse Oximetry (%) 98 Oxygen Delivery Method Room Air Intake Visit Reasons: EP cough, weak Intake Note: Patient is here today for cough, pain and weakness on going for 4 days. Have not tested for covid Patient Tobacco Use Status: Never used Tobacco Product Safety Associate Required: No Radiographer Angiogram: Not Required per policy Accompanied by: Self / Same As Patient Allergies No Known Allergies Allergy (Verified 06/26/24 08:20) Do you need a note to return to daycare/school/sports/work: Yes HPI HPI Comments History of Present Illness Details She presents to office with cough x 4-5 days +heaviness in chest with phlegm Green phlegm + hot feeling without documted temp + chills Tried dayquil without relief. + body aches + congestion, ST L sided Minimal L ear pain She said son sick at home; he was negative for viral causes She has not taken any tests at home [facility] Medical History Obesity (BMI 30-39.9) History of dissection of internal carotid artery (~2007) Depression Migraine Surgical History History of section (~02/2022) Family History Father No problems noted. Mother Mental health disorder Social History Housing: House Alcohol intake: never Patient Tobacco Use Status: Never used Tobacco e-Cigarette/Vaping Use: Never Used service: No Current occupational status: employed Cognitive needs: No Hearing needs: No Vision needs: No Review of Systems Const Reports chills, Reports fatigue and Reports fever(s) ENT Denies dizziness, Reports otalgia, Reports nasal congestion and Reports sore throat Card Denies chest pain, Denies syncope and Denies dyspnea Resp Reports change in phlegm color, Reports chest congestion, Reports cough and Denies dyspnea GI Denies abdominal pain Musc Reports myalgias Skin/Breast Denies rash Neuro Denies dizziness and Denies syncope Endo Reports fatigue Physical Exam Vital Signs: Last Vital Signs Temp 99.6 F 06/26/24 08:20 Pulse 92 06/26/24 08:20 BP 112/72 06/26/24 08:20 Pulse Ox 98 06/26/24 08:20 Oxygen Delivery Method Room Air 06/26/24 08:20 BMI result Body Mass Index 30.7 General: Non-toxic, NAD. Speaking full sentences. Skin: Warm dry throughout Eye: EOMI HENT: Airway patent. Uvula midline. No pharyngeal erythema or edema. No UTILITY FORESTER. Bilateral canals clear. TM non-erythematous, non-bulging. No TM perforation or hemotympanum noted. Respiratory: No tachypnea. + crackles L base. Otherwise, CTA . Cardiac: RRR. No murmur MSK: Full ROM extremities. Neurology: Alert. No aphasia or facial droop. Gait without abnormality Psych: Good mood and affect Assessment & Plan Assessment & Plan (1) Community acquired pneumonia: Code(s): J18.9 - Pneumonia, unspecified organism Qualifiers: Laterality: left Lung location: lower lobe of lung Qualified Code(s): J18.9 - Pneumonia, unspecified organism Plan: Pt seen and evaluated Crackles L base with low grade fever of 99.6 Will cover with Azithromycin Tessalon for cough Fever control at home Discussed worsening s/s such as fever, chest pain, sob, persistent symptoms and pt aware to be seen at that time All questions answered at time of discharge Medications: New azithromycin Take 2 pills day 1, then start daily pill on day 2 of therapy 250 mg PO DAILY 6 tabs 0RF 6 days benzonatate 100 mg PO BID-TID PRN 14 caps 0RF cough Coding Level of Care Code Est Pt Level 3 (82605) Diagnoses Community acquired pneumonia of left lower lobe of lung J18.9 Laterality: left Lung location: lower lobe of lung
== END 2024-06-26 08:39 | disposition home or self-care (01) ==
PROVIDERS: PCP Internal Medicine; Visit Provider Physician Assistant
DX: J18.9 Pneumonia, unspecified organism (principal)

== ENCOUNTER → 2024-06-26 07:57 | Outpatient (BNVA) | payer OTHER, SELFPAY | PROVIDERS: PCP Internal Medicine ==

== ENCOUNTER 2024-08-29 08:51 | Outpatient (REF) | payer OTHER, SELFPAY ==
[2024-08-29 10:10] LABS: MANUAL DIFF FLAG NO
[2024-08-29 10:15] LABS: Hematocrit 38.2 % (37.0-47.0); Hemoglobin 12.1 g/dl (12.0-16.0); Imm Gran Abs Auto 0.02 X10*3/uL (0.00-0.03); Imm Gran Pct Auto 0.3 % (0.0-0.4); Lymphocytes Absolute Auto 1.9 X10*3/uL (1.2-4.9); Mean Corpuscular HGB Conc 31.7 g/dl (31.0-35.0); Mean Corpuscular Hemoglobin 24.8 pg (27.0-33.0); Mean Corpuscular Volume 78.3 fL (80.0-98.0); NRBC Abs Auto 0.000 X10*3/uL (0.0-0.012); NRBC Pct Auto 0.0 /100WBC (0.0-0.2); Platelet Count 292 X10*3/uL (160-400); Red Blood Count 4.88 X10*6/uL (4.20-5.50); White Blood Count 5.9 X10*3/uL (4.8-10.8)
[2024-08-29 10:20] LABS: Appearance Urine Cloudy; Glucose Urine UA Negative (Negative); PH 6.0 (5.0-9.0); Specific Gravity - Urine 1.020 (1.005-1.025)
[2024-08-29 11:14] LABS: Alanine Aminotransferase 14 U/L (0-31); Albumin Level 4.1 g/dL (3.5-5.0); Alkaline Phosphatase 87 U/L (39-117); Anion Gap 9 (12-20); Aspartate Amino Transferase 21 U/L (5-31); Blood Urea Nitrogen 11 mg/dL (9-16); Calcium 8.4 mg/dL (8.4-10.2); Carbon Dioxide 25 mmol/L (22-29); Chloride 108 mmol/L (96-108); Cholesterol 147 mg/dL (<200); Estimated Glomerular Filt Rate > 60; HDL Cholesterol 55 mg/dL (>40); Potassium 4.0 mmol/L (3.3-5.1); Sodium 138 mmol/L (135-145); Total Protein 6.5 g/dL (6.5-8.0); Triglycerides 64 mg/dL (<150)
== END 2024-08-29 08:52 | disposition home or self-care (01) ==
LOC: HO.HMGCLDS 08:51
PROVIDERS: PCP Internal Medicine; Visit Provider Internal Medicine
DX: Z00.00 Encounter for general adult medical examination without abnormal findings (principal); E55.9 Vitamin D deficiency, unspecified; D64.9 Anemia, unspecified; R30.0 Dysuria; E78.00 Pure hypercholesterolemia, unspecified; I10 Essential (primary) hypertension
CPT/HCPCS: 36415; 80053; 80061; 81003; 82306; 84443; 85025

== ENCOUNTER 2024-09-03 12:38 | Outpatient (AMB) | payer OTHER, SELFPAY ==
--- NOTE | 2024-09-03 12:58 | MHC.OFFVIS ---
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 Psychiatry Resident Required: No Allergies No Known Allergies Allergy (Verified 06/26/24 08:20) HPI Comments Details: Thank you for referring Sonali in cardiology consultation today for symptoms of palpitations. Patient is a pleasant 44 year female who has had questionable valvular disease was seen a library director many years ago. Last echocardiogram although done in 2012 does not show any major valvular abnormalities. Patient has been doing well and more recently started noticing palpitation with the last 6 months. She says she started noticing palpitation in February where she would feel intermittent fluttering in his chest with skipped heartbeats associated with sometimes lightheadedness and chest discomfort. Symptoms then dissipated and about a month ago she had again similar symptoms which lasted for few days and then dissipated. She has not found any clear triggers to these symptoms. Intermittently she does not have any exertional symptoms of chest pain or shortness of breath. She denies any syncopal episodes. Denies any heart failure symptoms. Denies any other systemic issues. She also denies any significantly increased stress. She says she drinks caffeine on a daily basis and does not think there is any correlation with caffeine intake and palpitations. She denies any alcohol use or smoking. REPLACED BY [facility] Medical History Obesity (BMI 30-39.9) History of dissection of internal carotid artery (~2007) Depression Migraine Surgical History History of section (~02/2022) Family History Father No problems noted. Mother Mental health disorder Social History Housing: House Alcohol intake: never Patient Tobacco Use Status: Never used Tobacco e-Cigarette/Vaping Use: Never Used service: No Current occupational status: employed Cognitive needs: No Hearing needs: No Vision needs: No Review of Systems Const Denies chills, Denies daytime sleepiness, Denies fatigue, Denies fever(s), Denies frequent falls, Denies poor appetite, Denies snoring, Denies stops breathing during sleep, Denies weakness, Denies weight gain and Denies weight loss Eyes Denies loss of vision ENT Denies dizziness and Denies hearing loss Card Denies chest pain, Denies claudication, Denies leg edema, Denies lightheadedness, Denies palpitations, Denies dyspnea, Denies dyspnea on exertion and Denies orthopnea Resp Denies cough, Denies excessive phlegm production, Denies dyspnea, Denies dyspnea on exertion, Denies snoring and Denies wheezing GI Denies abdominal pain, Denies hematochezia, Denies change in bowel habits, Denies nausea and Denies vomiting Denies urinary frequency and Denies dysuria Musc Denies arthralgias, Denies muscle weakness, Denies numbness and Denies other (frequent falls) Skin/Breast Denies nail changes and Denies rash Neuro Denies Abnormal speech present, Denies dizziness, Denies frequent falls, Denies loss of vision, Denies memory loss, Denies numbness and Denies weakness Psych Denies depression and Denies memory loss Endo Denies fatigue and Denies palpitations Jorge/Lymph Reports easy bruising and Reports other (anemia) Aller/Immun Denies wheezing Physical Exam Vital Signs: Last Vital Signs Pulse 73 09/03/24 12:59 BP 124/80 09/03/24 12:59 BMI result Body Mass Index 30.6 Const General: cooperative, comfortable, no acute distress, alert, awake, Physically active and well groomed Nutritional Appearance: overweight Orientation/consciousness: patient oriented x3 Limitations: no limitations HEENT Head: Yes normocephalic and Yes atraumatic Neck Neck: Yes trachea midline, Yes supple and Yes no JVD Resp Effort & Inspection: normal respiratory effort Auscultation: clear to auscultation bilaterally Cardio Jugular venous distension: no JVD Rate: regular rate Rhythm: regular rhythm Heart sounds: S1 normal heart sound present, S2 normal heart sound present, no click, no gallops, no murmurs and no rubs GI Auscultation: normal bowel sounds Skin General skin exam: no rashes or lesions noted Neuro General: patient oriented x3 and no focal motor deficits Speech: No Abnormal speech present Extrem General: Yes no clubbing, cyanosis or edema Psych Appearance: grossly normal Office Procedures EKG Details: EKG today shows normal sinus rhythm normal EKG with normal axis normal intervals [id number], Complete Assessment & Plan Assessment & Plan (1) Palpitations: Code(s): R00.2 - Palpitations Category: Medical Plan: Patient with highly symptomatic but intermittent episodes and sporadic episodes of palpitation highly symptomatic with the associated lightheadedness chest discomfort. Symptoms highly suggestive of extra systoles most likely PVCs although PACs also likely. Treatment will depend on diagnose as well as frequency of her cardiac arrhythmia. Her symptoms are currently subsided. This would make for a difficult diagnose although I would suggest a 2 week Holter monitor to assess for these symptoms. Will also suggest an echocardiogram to evaluate for structural heart issues. These tests will be scheduled in near future. Her recent blood work did not show any significant electrolyte abnormalities and thyroid function was within normal limits. We discussed about stress mitigation strategies as well as avoidance of stimulants. Further treatment based on the finding of the above test. Will follow up in the clinic after above tests are completed. Coding Level of Care Code New Pt Level 4 (79304) Complex EM visit Add On G2211 Diagnoses Palpitations R00.2 CPT Codes EKG - CPT: 88265-[id number], Complete ([id number])
[2024-09-03 12:59] VITALS: BP 124/80; PULSE 73; BMI 30.6
== END 2024-09-03 13:26 | disposition home or self-care (01) ==
LOC: HO.HCS 12:39
PROVIDERS: PCP Internal Medicine; Visit Provider Internal Medicine Cardiovascular Disease
DX: R00.2 Palpitations (principal)
CPT/HCPCS: 93010; 99204; G2211

== ENCOUNTER → 2024-09-03 12:38 | Outpatient (BNVA) | payer OTHER, SELFPAY | PROVIDERS: PCP Internal Medicine; Visit Provider Internal Medicine Cardiovascular Disease | DX: R00.2 Palpitations (principal) | CPT/HCPCS: 93005 ==

== ENCOUNTER → 2024-10-08 08:39 | Outpatient (REF) | payer OTHER, SELFPAY ==
--- NOTE | 2024-10-08 08:43 | CA_ITS ---
Transthoracic Echocardiogram Patient (Last, First, Middle): Sonali Gonzales, Gender: Female Date of : 1980 Age: 44 Procedure Date: 10/08/2024 Procedure Type: Transthoracic Echocardiogram Location: OP Height: 162.56 cm Weight: 80.74 kg BSA: 1.86 m2 Heart Rate: bpm BP: 124 / 80 mmHg Zoning Administrator: CARA Referring MD: John Ivey MD Symptoms: R00.2 - Palpitations Study Quality: Adequate ECG Rhythm: Sinus Conclusions: - The left ventricular systolic function is normal. The calculated ejection fraction is 61% by biplane method. - No obvious valvular pathology seen on this study. Findings Left Ventricle Normal left ventricular cavity size. There is normal left ventricular wall thickness. The left ventricular systolic function is normal. The calculated ejection fraction is 61% by biplane method. There is no evidence of regional wall motion abnormalities. Diastolic function is normal for age. Right Ventricle Normal right ventricular cavity size and systolic function. Atria Both atria are normal in size. Aortic Valve There is a normal trileaflet aortic valve. There is no aortic valve stenosis. There is no aortic valve regurgitation. Mitral Valve The mitral valve appears normal. There is trace mitral valve regurgitation. There is no mitral valve stenosis. Pulmonic Valve The pulmonic valve is likely normal. Tricuspid Valve There is trace tricuspid valve regurgitation. There is no evidence of pulmonary hypertension. Great Vessels The asc aorta and aortic arch are normal in size. Venous The inferior vena cava is normal in size and collapses greater than 50% with inspiration. Pericardium/Pleural There is no evidence of pericardial effusion. Prior Study Comparison No prior study available for comparison. Recommendations, Care & Conclusions No obvious valvular pathology seen on this study. Measurements 2D Linear Measurements IVSd: 0.75 0.6-0.9/0.6-1.0 cm LVIDd: 5.25 3.9-5.3/4.2-5.9 cm LVIDd Index: 2.82 2.4-3.2/2.2-3.1 cm/m2 LVIDs: 3.44 2.0-3.6 cm LVPWd: 0.65 0.7-1.1 cm LA Diam: 3.00 2.7-3.8/3.0-4.0 cm LAIDs Index: 1.61 1.5-2.3 cm/m2 LV Mass: 156.46 67-162/88-224 g LV Mass Index: 84.12 43-95/49-115 g/m2 LVOT Diam: 2.00 3.0+(-)1.3 cm 2D Systolic Function EF 4C: 60.20 >55% EF 2C: 63.70 >55% EF BiP: 61.40 >55% Mitral Valve MV Pk E: 0.84 MV PK A: 0.63 MV Decel Time: 211.00 E/A: 1.30 E'Lateral: 14.40 E'Medial: 9.79 E/E' Med: 8.60 E/E' Lat: 5.90 PHT: 62.00 MVA PHT: 3.55 Decel Yates: 4.00 Aortic Valve AoV Pk Bartolome: 1.51 AoV Mn Bartolome: 1.01 AoV VTI: 0.33 AoV Pk Grad: 9.00 Aov Mn Grad: 5.00 PAVITHRA Cont.VTI: 2.22 LVOT LVOT Pk Bartolome: 1.10 LVOT Mn Bartolome: 0.71 LVOT VTI: 0.24 LVOT Pk Grad: 5.00 LVOT Mn Grad: 2.00 LVOT Diam: 2.00 LVOT Area: 3.14 Diastolic Function MV Pk E: 0.84 MV Pk A: 0.63 E/A: 1.30 E'Medial: 9.79 E/E' Med: 8.60 E' Laterial: 14.40 E/E' Lat: 5.90 Right Ventricle TAPSE (mm): 26.70 TVS' Bartolome: 11.30 Tricuspid Valve TR Pk Bartolome: 2.06 TR Pk Grad: 17.00 RA Press: 3.00 RVSP: 20.00 Great Vessels Aorta Sinus of Valsalva: 3.00 2.0-3.5 cm Ao Asc: 2.80 2.1-3.4 cm Ao Arch: 2.70 Updated in Other Vendor System with Status of Final Liam Saba MD electronically signed on 10/08/2024 1:19:26 PM with status of Final
--- NOTE | 2024-10-08 08:43 | HM_ITS ---
Conclusion: 1. Patient was monitored for total period of 11 days 2. Baseline was normal sinus rhythm with average heart of 70 beats per minute 3. No significant pauses noted with very rare PVCs noted with total count of 6 in the whole 11 day. 4. Patient marked the counter 2 times correlating with normal sinus rhythm MTDD
== END ==
LOC: HO.CARD 08:39
PROVIDERS: PCP Internal Medicine; Visit Provider Internal Medicine Cardiovascular Disease
DX: R00.2 Palpitations (principal)
CPT/HCPCS: 93246; 93306

== ENCOUNTER → 2024-10-08 08:43 | Outpatient (BNV) | payer OTHER, SELFPAY | PROVIDERS: PCP Internal Medicine; Visit Provider Internal Medicine | DX: R00.2 Palpitations (principal) | CPT/HCPCS: 93306 ==

== ENCOUNTER 2024-11-25 14:48 | Outpatient (AMB) | payer OTHER, SELFPAY ==
--- NOTE | 2024-11-25 15:09 | MHC.PC.OV ---
Vital Signs 11/25/24 15:10 Height 5 ft 4 in Weight 177 lb 6 oz BMI 30.4 BP 116/68 Blood Pressure Location Lt brachial Position Sitting Pulse 47 L Pulse Source Pulse Oximeter Temp 97.3 F Temp Source Temporal Artery Scan Pulse Oximetry (%) 98 Oxygen Delivery Method Room Air Intake Visit Reasons: lower back pain and numbness Intake Note: Patient is here to follow up on Lower back pain and numbness. Trousseau Consultant Required: No Pharmaceutical Scientist: Not Required per policy Accompanied by: Self / Same As Patient Allergies No Known Allergies Allergy (Verified 11/25/24 15:10) Medication List - Last Reconciled 11/25/24 by Anyi Flores MD multivitamin (Multiple Vitamins tablet) 1 tab PO DAILY Tobacco use date assessed: 11/25/24 Dental Screening Dental Screen Date: 11/25/24 Did you have a dental visit in the last 12 months?: No Did you have a dental problem in the last 6 months where you did not have access to dental care?: No Was dental information given to patient?: Patient has dentist HPI HPI Comments History of Present Illness Details The patient is a 44-year-old female presenting with chronic lower back pain and numbness in the legs. She reports a history of lumbar spine arthritis, with the pain being severe enough to cause numbness in both legs, predominantly on the right side. The pain is described as a burning sensation that can be triggered by standing or incorrect movements, and it is severe enough to interfere with her ability to walk or perform daily activities. The patient has been experiencing these symptoms for a long time, with the last x-ray conducted in 2022 showing arthritis in the lower lumbar spine. She has tried various interventions including care connector, Tylenol, and biofreeze, but reports no significant relief from these treatments. In addition to lower back pain, the patient also reports neck pain, which she attributes to the same underlying issues. [facility]LY [facility], [facility] Medical History Obesity (BMI 30-39.9) History of dissection of internal carotid artery (~2007) Depression Migraine Surgical History History of section (~02/2022) Family History Father No problems noted. Mother Mental health disorder Social History Housing: House Alcohol intake: never Patient Tobacco Use Status: Never used Tobacco e-Cigarette/Vaping Use: Never Used Second Hand Smoke Exposure: No service: No Current occupational status: employed Cognitive needs: No Hearing needs: No Vision needs: Yes (Glasses) Questionnaire PHQ-9 Over the last 2 weeks, how often have you been bothered by any of the following problems? 1. Little interest or pleasure in doing things: not at all 2. Feeling down, depressed, or hopeless: not at all 3. Trouble falling or staying asleep, or sleeping too much: not at all 4. Feeling tired or having little energy: not at all 5. Poor appetite or overeating: not at all 6. Feeling bad about yourself - or that you are a failure or have let yourself or your family down: not at all 7. Trouble concentrating on things, such as reading the newspaper or watching television: not at all 8. Moving or speaking so slowly that other people could have noticed. Or the opposite - being so fidgety or restless that you have been moving around a lot more than usual: not at all 9. Thoughts that you would be better off or of hurting yourself in some way: not at all Total score: 0 Depression Screening Interpretation: Negative Depression Screening Done: Yes Source: Developed by Drs. Mihir Menendez, Nicolasa East, Rickie Sullivan and colleagues, with an educational sunita from [employer]. Thrive Questionnaire Date Thrive assessed: 11/25/24 I am a: Patient What is your living situation today?: I have a steady place to live Within the past 12 months, did the food you bought not last and you didn't have the money to get more?: Never true Within the past 12 months, did you worry whether your food would run out before you got money to buy more?: Never true Do you have trouble paying for medicines?: No Do you have trouble getting transportation to medical appointments?: No Do you have trouble paying your heating and electricity bill?: No Do you have trouble taking care of your child, family member or friend?: No Do you have trouble with day-to-day activities such as bathing, preparing meals, shopping, managing finances, etc.?: No Are you currently unemployed and looking for a job?: No Are you interested in more education?: No Please select the resources that you would like help with: None Currently or been in a relationship where the following occur: No concerns reported THRIVE Score: 0 AUDIT C Alcohol Use Questionnaire (AUDIT-C) 1. How often do you have a drink containing alcohol?: Never 3. How often do you have six or more drinks on one occasion?: Never Total Score: 0 CRISELDA-7 AMB Questionnaire CRISELDA-7 Date CRISELDA - 7 assessed: 11/25/24 Feeling nervous, anxious, or on edge: 0 = Not at all Not being able to stop or control worryin = Not at all Worrying too much about different things: 0 = Not at all Trouble relaxin = Not at all Being so restless that it is hard to sit still: 0 = Not at all Becoming easily annoyed or irritable: 0 = Not at all Feeling afraid as if something awful might happen: 0 = Not at all Total CRISELDA-7 score (0-4 normal; 5-9 mild; 10-14 moderate; 15-21 severe): 0 Source: Developed by Drs. Mihir Menendez, Nicolasa East, Rickie Sullivan and colleagues, with an educational sunita from [employer]. Review of Systems Const Details: Positives besides what was mentioned in HPI are in BOLD Constitutional: No Weight Change, No Fever, No Chills, No Night Sweats, No Fatigue, No Malaise ENT/Mouth: No Hearing Changes, No Ear Pain, No Nasal Congestion, No Sinus Pain, No Hoarseness, No sore throat, No Rhinorrhea, No Swallowing Difficulty Eyes: No Eye Pain, No Swelling, No Redness, No Foreign Body, No Discharge, No Vision Changes Cardiovascular: No Chest Pain, No SOB, No PND, No Dyspnea on Exertion, No Orthopnea, No Claudication, No Edema, No Palpitations Respiratory: No Cough, No Sputum, No Wheezing, No Smoke Exposure, No Dyspnea Gastrointestinal: No Nausea, No Vomiting, No Diarrhea, No Constipation, No Pain, No Heartburn, No Anorexia, No Dysphagia, No Hematochezia, No Melena, No Flatulence, No Jaundice Genitourinary: No Dysmenorrhea, No DUB, No Dyspareunia, No Dysuria, No Urinary Frequency, No Hematuria, No Urinary Incontinence, No Urgency, No Flank Pain, No Urinary Flow Changes, No Hesitancy Musculoskeletal: No Arthralgias, No Myalgias, No Joint Swelling, No Joint Stiffness, No Back Pain, No Neck Pain, No Injury History Skin: No Skin Lesions, No Pruritis, No Hair Changes, No Breast/Skin Changes, No Nipple Discharge Neuro: No Weakness, No Numbness, No Paresthesias, No Loss of Consciousness, No Syncope, No Dizziness, No Headache, No Coordination Changes, No Recent Falls Psych: No Anxiety/Panic, No Depression, No Insomnia, No Personality Changes, No Delusions, No Rumination, No SI/HI/AH/VH, No Social Issues, No Memory Changes, No Violence/Abuse Hx., No Eating Concerns Heme/Lymph: No Bruising, No Bleeding, No Transfusions History, No Lymphadenopathy Endocrine: No Polyuria, No Polydipsia, No Temperature Intolerance Physical exam (Primary Care) Vital Signs: Last Vital Signs Temp 97.3 F 11/25/24 15:10 Pulse 47 L 11/25/24 15:10 BP 116/68 11/25/24 15:10 Pulse Ox 98 11/25/24 15:10 Oxygen Delivery Method Room Air 11/25/24 15:10 BMI result Body Mass Index 30.4 Tobacco/Smoking Status: Tobacco use Status Tobacco use date assessed 11/25/24 11/25/24 15:15 Patient Tobacco Use Status Never used Tobacco 11/25/24 15:15 e-Cigarette/Vaping Use Never Used 11/25/24 15:15 PHQ-9: PHQ-9 Score PHQ-9: Total score 0 11/25/24 15:15 Depression Screening Interpretation: Negative Thrive Assessment: Date of Thrive Assessment Date Thrive assessed 11/25/24 11/25/24 15:15 Currently or been in a relationship where the following occur: No concerns reported Const Other: Pertinent findings are in BOLD GENERAL APPEARANCE NAD, activity normal for age, well developed/ well nourished, no cyanosis, pallor, or diaphoresis. EYES lids/conjunctiva normal. EARS/NOSE/THROAT Mucous membranes moist, nares normal, lips/teeth normal uvula midline without oral pharyngeal erythema, exudate or swelling TMs normal bilaterally. No lymphangitis/lymphedema. HEAD/NECK normocephalic atraumatic, no facial trauma, neck is supple. RESPIRATORY respiratory effort normal, speaks in full sentences, no tripod position, no accessory muscle use. Lungs clear to auscultation without rhonchi, wheezes, rales CARDIAC Regular rate and rhythm, no edema. ABDOMINAL Soft, ND/NT. No evidence of fluid wave. No pulsatile masses on exam, rebound tenderness, Lua sign or pain over Mcburney's point. MUSCLES/EXTREMITIES No abnormal range of motion, no swelling. Positive leg raise exam on both sides. SKIN Warm, pink and dry. No rashes, dermatoses, petechiae or lesions. NEUROLOGICAL Speech is clear and appropriate. Normal level of consciousness. Gait and coordination are normal. 5/5 strength in all extremities. PSYCH Normal mood and affect. Judgement/competence is appropriate Coding Level of Care Code Est Pt Level 4 (82104) Diagnoses Spondylosis of lumbar spine M47.816 Vitamin D deficiency E55.9 Time Spent (min) 30 Assessment & Plan Assessment & Plan (1) Spondylosis of lumbar spine: Code(s): M47.816 - Spondylosis without myelopathy or radiculopathy, lumbar region Category: Medical Plan: - Plan to obtain a CT scan to further evaluate the lumbar spine and assess for potential surgical intervention. - Consideration of dietary changes to potentially alleviate symptoms. - Prescribed naproxen as needed for pain management. (2) Vitamin D deficiency: Code(s): E55.9 - Vitamin D deficiency, unspecified Category: Medical Plan: Vit D prescribed in today's visit. Plan During the consultation, I discussed with the patient the potential causes of her chronic lower back pain and numbness, emphasizing the role of lumbar spine arthritis. We explored various management options, including obtaining a CT scan for further evaluation, and the possibility of surgical intervention if necessary. I recommended dietary modifications and weight management as potential strategies to alleviate symptoms and improve overall health. We also discussed the use of naproxen for pain management and the importance of physical therapy and pain management strategies. Orders: Orders CT lumbar spine wo IV con Today M47.816 - Spondylosis without myelopathy or radiculopathy, lumbar region Medications: New cholecalciferol (vitamin D3) 50 mcg PO DAILY 90 caps 3RF naproxen 500 mg PO BID PRN 60 tabs 3RF pain
[2024-11-25 15:10] VITALS: BP 116/68; PULSE 47; TEMP 36.3; O2SAT 98; BMI 30.4
== END 2024-11-25 15:47 | disposition home or self-care (01) ==
LOC: HO.HMCH 14:49
PROVIDERS: PCP Internal Medicine; Visit Provider Internal Medicine
DX: M47.816 Spondylosis without myelopathy or radiculopathy, lumbar region (principal); E55.9 Vitamin D deficiency, unspecified

== ENCOUNTER 2024-12-16 16:11 | Outpatient (AMB) | payer OTHER, SELFPAY ==
[2024-12-16 16:20] VITALS: BP 110/72; PULSE 68; O2SAT 98; BMI 30.4
--- NOTE | 2024-12-16 16:20 | MHC.PC.OV ---
Vital Signs 12/16/24 16:20 Height 5 ft 4 in Weight 177 lb 6 oz BMI 30.4 BP 110/72 Blood Pressure Location Lt brachial Position Sitting Pulse 68 Pulse Source Pulse Oximeter Pulse Oximetry (%) 98 Oxygen Delivery Method Room Air Intake Visit Reasons: Annual Exam Design Editor Required: No Accompanied by: Self / Same As Patient Allergies No Known Allergies Allergy (Verified 12/16/24 17:45) Medication List - Last Reconciled 12/16/24 by Gerard Abernathy MD cholecalciferol (vitamin D3) 50 mcg PO DAILY multivitamin (Multiple Vitamins tablet) 1 tab PO DAILY naproxen 500 mg PO BID PRN Tobacco use date assessed: 12/16/24 Dental Screening Dental Screen Date: 12/16/24 Did you have a dental visit in the last 12 months?: No Did you have a dental problem in the last 6 months where you did not have access to dental care?: No Was dental information given to patient?: No HPI Annual Exam HPI Details Patient comes in today for her annual physical examination States that she feels okay except for increased pain in her lower back lately She was seen here for this last month and is currently still waiting for her lumbar spine CT to be scheduled Denies any headaches or dizziness Denies any chest pains, no SOB; states that she's had no issues with palpitations lately No nausea/vomiting, no abdominal pain No change in bowel habits noted She denies any acute urinary symptoms She had her follow up labs done back in August 2024 - to discuss her results She is scheduled for her annual mammogram in a few weeks on 02/03/2025 States that she has not yet had her yearly gynecology exam and pap smear this year - she goes to her [facility] at [facility] and states that she will try to reach out to them to schedule her appointment [place] Medical History Obesity (BMI 30-39.9) History of dissection of internal carotid artery (~2007) Depression Migraine Surgical History History of section (~02/2022) Family History Father No problems noted. Mother Mental health disorder Social History Housing: House Alcohol intake: never Patient Tobacco Use Status: Never used Tobacco e-Cigarette/Vaping Use: Never Used Second Hand Smoke Exposure: No service: No Current occupational status: employed Cognitive needs: No Hearing needs: No Vision needs: Yes (Glasses) Questionnaire Thrive Questionnaire Date Thrive assessed: 11/25/24 I am a: Patient What is your living situation today?: I have a steady place to live Within the past 12 months, did the food you bought not last and you didn't have the money to get more?: Never true Within the past 12 months, did you worry whether your food would run out before you got money to buy more?: Never true Do you have trouble paying for medicines?: No Do you have trouble getting transportation to medical appointments?: No Do you have trouble paying your heating and electricity bill?: No Do you have trouble taking care of your child, family member or friend?: No Do you have trouble with day-to-day activities such as bathing, preparing meals, shopping, managing finances, etc.?: No Are you currently unemployed and looking for a job?: No Are you interested in more education?: No Please select the resources that you would like help with: None Currently or been in a relationship where the following occur: No concerns reported THRIVE Score: 0 AUDIT C Alcohol Use Questionnaire (AUDIT-C) 1. How often do you have a drink containing alcohol?: Never 3. How often do you have six or more drinks on one occasion?: Never Total Score: 0 Score Reviewed/Action Taken: Yes CRISELDA-7 AMB Questionnaire CRISELDA-7 Date CRISELDA - 7 assessed: 11/25/24 Source: Developed by Drs. Mihir Menendez, Nicolasa East, Rickie Sullivan and colleagues, with an educational sunita from [employer]. Review of Systems Const Denies chills, Denies fatigue, Denies fever(s), Denies headache(s) and Denies malaise Eyes Denies blurry vision, Denies change in vision, Denies irritation and Denies itchy eyes ENT Denies dysphagia, Denies dizziness, Denies otalgia, Denies headache(s), Denies nasal congestion, Denies neck pain, Denies odynophagia, Denies sinus pain and Denies sore throat Card Denies chest pain, Denies rapid heart rate, Denies irregular heart rhythm, Denies palpitations and Denies dyspnea Resp Denies chest congestion, Denies cough, Denies dyspnea and Denies wheezing GI Denies abdominal pain, Denies bloating, Denies constipation, Denies dysphagia, Denies heartburn, Denies diarrhea, Denies nausea, Denies odynophagia and Denies vomiting Denies hematuria, Denies urinary frequency, Denies dysuria, Denies urinary incontinence and Denies urinary urgency Musc Reports back pain (over her lower back - increased lately), Denies arthralgias, Denies joint swelling, Denies muscle weakness, Denies neck pain and Reports numbness (on and off in the right leg) Skin/Breast Denies breast pain, Denies breast mass, Denies change in pigmentation, Denies lesions, Denies rash and Denies unusual bruising Neuro Denies dizziness, Denies headache(s), Reports numbness (on and off in the right leg) and Denies paresthesias Psych Denies anxiety and Denies depression Endo Denies fatigue and Denies palpitations Jorge/Lymph Denies easy bruising Aller/Immun Denies itchy eyes and Denies wheezing Physical exam (Primary Care) Vital Signs: Last Vital Signs Pulse 68 12/16/24 16:20 BP 110/72 12/16/24 16:20 Pulse Ox 98 12/16/24 16:20 Oxygen Delivery Method Room Air 12/16/24 16:20 BMI result Body Mass Index 30.4 Tobacco/Smoking Status: Tobacco use Status Tobacco use date assessed 12/16/24 12/16/24 16:25 Patient Tobacco Use Status Never used Tobacco 12/16/24 16:25 e-Cigarette/Vaping Use Never Used 12/16/24 16:25 Thrive Assessment: Date of Thrive Assessment Date Thrive assessed 11/25/24 12/16/24 16:25 Currently or been in a relationship where the following occur: No concerns reported Const General: no acute distress, alert and awake Orientation/consciousness: patient oriented x3 HENMT Head: Yes normocephalic and Yes atraumatic Ears: external ears normal, TM's normal bilaterally and EAC's normal General nose exam: No nasal discharge present Face and sinus: Yes normal facial exam and Yes sinuses nontender Teeth and gingiva: dentition normal Throat: Yes posterior oropharynx normal and Yes tonsils normal (no TP congestion) Eyes Eyelids: Yes eyelids normal Conjunctivae: conjunctivae normal Pupils: Equal, round and reactive pupils present EOM: EOMs intact bilaterally Neck Neck: Yes no lymphadenopathy and Yes supple Thyroid: Thyroid normal Resp Auscultation: clear to auscultation bilaterally, no rales and no wheezes Cardio Rate: regular rate Rhythm: regular rhythm Heart sounds: no murmurs GI Palpation (GI): Soft to palpation, nontender and No hepatosplenomegaly present Auscultation: normal bowel sounds General: Yes no CVA tenderness Back/Spine/Pelvis Back: no CVA tenderness Thoracic/Lumbar Spine: lumbar spinal tenderness Skin Lesions: no lesions Rashes: no rashes Neuro General: patient oriented x3, moves all extremities, no focal motor deficits and CN's II-XI intact bilaterally Cranial nerves: Yes Equal, round and reactive pupils present Cognition (Neuro): normal cognition Gait exam (Neuro): Normal gait present Extrem General: Yes no clubbing, cyanosis or edema Results Reviewed Results Reviewed: Laboratory Tests 08/29/24 08/29/24 09:02 09:10 WBC 5.9 Hgb 12.1 Hct 38.2 Plt Count 292 Sodium 138 Potassium 4.0 Creatinine 0.73 Estimated GFR > 60 Fasting Glucose 85 Calcium 8.4 D AST 21 ALT 14 Triglycerides 64 Cholesterol 147 LDL Cholesterol, Calc 80 HDL Cholesterol 55 25-OH Vitamin D Total 23.3 L TSH 1.24 Ur Specific Unity 1.020 Urine Protein Negative Urine Glucose (UA) Negative Urine Blood Negative Urine Nitrite Negative Ur Leukocyte Esterase Negative Coding Level of Care Code Est Pt Prev Care 40-64y(42386) Diagnoses Annual physical exam Z00.00 Migraine without status migrainosus, not intractable, unspecified migraine type G43.909 Migraine type: unspecified Status migrainosus presence: without status migrainosus Intractability: not intractable Degeneration of thoracolumbar intervertebral disc M51.35 Bilateral primary osteoarthritis of hip M16.0 Obesity (BMI 30-39.9) E66.9 Assessment & Plan Assessment & Plan (1) Annual physical exam: Code(s): Z00.00 - Encounter for general adult medical examination without abnormal findings Category: Medical Plan: Results of her labs done back in August 2024 reviewed and discussed with patient She is scheduled for her annual mammogram in a few weeks on 02/03/2025 States that she has not yet had her yearly gynecology exam and pap smear this year - she goes to her [facility] at [facility] and states that she will try to reach out to them to schedule her appointment [place] (2) Migraine: Code(s): G43.909 - Migraine, unspecified, not intractable, without status migrainosus Category: Medical Qualifiers: Migraine type: unspecified Status migrainosus presence: without status migrainosus Intractability: not intractable Qualified Code(s): G43.909 - Migraine, unspecified, not intractable, without status migrainosus Plan: Stable - patient states that she hardly has to take anything for headaches lately Reinforced avoidance of all potential migraine triggers and she is reminded to make sure she is getting enough rest and sleep at night regularly (3) Degeneration of thoracolumbar intervertebral disc: Code(s): M51.35 - Other intervertebral disc degeneration, thoracolumbar region Category: Medical Plan: X-rays of the thoracic and lumbar spine done back in September 2022 revealed (+) mild degenerative changes in the thoracic spine and facet arthritis in the lower lumbar spine She was seen here last month for significantly increased pain in her lower back and is currently waiting for her lumbar spine CT to be approved and scheduled for further evaluation Continue Naproxen 500 mg BID PRN with food for now (4) Bilateral primary osteoarthritis of hip: Code(s): M16.0 - Bilateral primary osteoarthritis of hip Category: Medical Plan: X-rays done in September 2022 revealed (+) [id number] degenerative changes in the right hip and minimal degenerative changes in the left hip Continue Naproxen 500 mg BID PRN Follow up with orthopedics as scheduled or as needed (5) Obesity (BMI 30-39.9): Code(s): E66.9 - Obesity, unspecified Category: Medical Plan: Reinforced diet/exercise as tolerated/lose weight Plan To return in 1 year for her next annual physical examination Patient is reminded to get her labs done just before she comes back for her annual physical exam next year Orders: Orders Comprehensive [place]. Panel Fast 1 Year E78.00 - Pure hypercholesterolemia, unspecified, Z00.00 - Encounter for general adult medical examination without abnormal findings UA CC w/rflx Micro + Cult 1 Year R30.0 - Dysuria, Z00.00 - Encounter for general adult medical examination without abnormal findings Vitamin D 25-OH Total 1 Year E55.9 - Vitamin D deficiency, unspecified, Z00.00 - Encounter for general adult medical examination without abnormal findings Complete Blood Count Auto Diff 1 Year D64.9 - Anemia, unspecified, Z00.00 - Encounter for general adult medical examination without abnormal findings Lipid Panel 1 Year E78.00 - Pure hypercholesterolemia, unspecified, Z00.00 - Encounter for general adult medical examination without abnormal findings TSH reflex Free T4 1 Year E78.00 - Pure hypercholesterolemia, unspecified, Z00.00 - Encounter for general adult medical examination without abnormal findings
== END 2024-12-16 16:45 | disposition home or self-care (01) ==
LOC: HO.HMCH 16:12
PROVIDERS: PCP Internal Medicine; Visit Provider Internal Medicine
DX: Z00.00 Encounter for general adult medical examination without abnormal findings (principal); G43.909 Migraine, unspecified, not intractable, without status migrainosus; E66.9 Obesity, unspecified; Z68.30 Body mass index [BMI] 30.0-30.9, adult; M51.35 Other intervertebral disc degeneration, thoracolumbar region; M16.0 Bilateral primary osteoarthritis of hip

== ENCOUNTER 2025-02-07 11:29 | Outpatient (REF) | payer OTHER, SELFPAY ==
--- NOTE | ~2025-02-07 | CT_ITS ---
EXAMINATION: CT LUMBAR SPINE WITHOUT CONTRAST CLINICAL INFORMATION: Spondylosis without myelopathy or radiculopathy, lumbar region. COMPARISON: None available. Correlation made with x-rays of the lumbar spine 10/08/2022. TECHNIQUE: Spiral CT imaging of the lumbar spine performed in axial plane without contrast. Multiplanar reformatted images were constructed from the axial data set. This CT examination was performed using dose optimization techniques as appropriate, variously including the following: *Automated exposure control *Adjustment of mA and/or kV according to patient size (this includes techniques or standardized protocols for targeted exams where dose is matched to indication/reason for exam; i.e. extremities or head) *Use of iterative reconstruction technique FINDINGS: There is a minimal left convex scoliosis, apex at L3. There is a normal lumbar lordosis. There is no fracture, compression deformity, or suspicious bone lesion. There is a trace 2 mm anterolisthesis of L5 on S1. Sagittal alignment is otherwise anatomic. There is mild disc degeneration present diffusely, most significant at L5-S1. There is mild facet degeneration at L5-S1. The retroperitoneal and intraperitoneal structures included in the imaging demonstrate mild bulkiness of the uterus, which is retroflexed and retroverted, likely on the basis of underlying fibroids. The aorta is nonaneurysmal. Imaged bowel structures, kidneys, bladder, and adnexal regions appear normal. The paravertebral and paraspinous soft tissues appear normal. AXIAL DISC SPACE IMAGING (limited by modality and technique): T12-L1: No central canal or neural foraminal narrowing. L1-L2: No central canal or neural foraminal narrowing. L2-L3: There is a small left foraminal disc extrusion. This does not result in significant neural foraminal narrowing. There is no central canal stenosis. The right neural foramen is patent. L3-4: No central canal or neural foraminal narrowing. L4-5: Shallow concentric disc bulge is present, extending into both foraminal zones. There is no significant central canal stenosis. There is minimal neural foraminal narrowing bilaterally. L5-S1: Mild to moderate disc degeneration. There is a shallow diffuse disc bulge present, extending into both foraminal zones. There are mild to moderate hypertrophic degenerative facet changes bilaterally. The combination of findings is resulting in minimal central canal narrowing, and mild to moderate right greater than left neural foraminal narrowing. No evidence of nerve root impingement. CT/CT lumbar spine wo IV con IMPRESSION: 1. There are no acute bony or soft tissue abnormalities. 2. There is mild spondylosis of the lumbar spine with mild disc and facet degeneration at L5-S1. There is no significant central canal or meaningful neural foraminal stenosis evident. No evidence of nerve root impingement identified. See above for details. Electronically signed by: Nguyễn Thompson MD 02/07/2025 12:52 PM [id number]
== END 2025-02-07 11:30 | disposition home or self-care (01) ==
LOC: HO.CT 11:29
PROVIDERS: PCP Internal Medicine; Visit Provider Internal Medicine
DX: M47.816 Spondylosis without myelopathy or radiculopathy, lumbar region (principal)
CPT/HCPCS: 72131

== ENCOUNTER → 2025-02-07 11:30 | Outpatient (BNV) | payer OTHER, SELFPAY | PROVIDERS: PCP Internal Medicine; Visit Provider Radiology Diagnostic Radiology | DX: M47.816 Spondylosis without myelopathy or radiculopathy, lumbar region (principal); M51.379 Other intervertebral disc degeneration, lumbosacral region without mention of lumbar back pain or lower extremity pain | CPT/HCPCS: 72131 ==